=== PATIENT | male | born 1940 | race Caucasian/White ===

== ENCOUNTER → 2017-11-07 | Outpatient (CLI) | payer BC | END | disposition home or self-care (01) | LOC: C.LABSPEC 10:14 | PROVIDERS: ATTEND Urology | DX: R30.0 Dysuria (principal) ==

== ENCOUNTER 2019-01-03 08:53 | Inpatient (IN) ==
--- OUTSIDE RECORDS SUMMARY | 2019-01-03 08:58 | External Medical Summary | Continuity of Care Document ---
:1940 Author Name Sarah Santizo, Provider Address Unavailable Unavailable , Care Team Providers Name Role Phone Odin Garcia PA-C Unavailable [email or web address] Robbie Fitzpatrick M.D. Unavailable [email or web address] Unavailable [email or web address] Dennis Iglesias M.D. Unavailable [email or web address] Tiera GONZALEZ Unavailable Unavailable Unavailable Unavailable Unavailable Problems Aortic regurgitation (424.1) (I35.1) EKG, abnormal (794.31) (R94.31) Mitral regurgitation (424.0) (I34.0) Dementia with Lewy bodies (331.82) (G31.83) Hallucinations (780.1) (R44.3) Prostate cancer (185) (C61) Bone metastases (198.5) (C79.51) Sinus bradycardia (427.89) (R00.1) Urethral stricture (598.9) Essential thrombocythemia (238.71) (D47.3) Hyperlipidemia (272.4) (E78.5) Parkinson's disease (332.0) (G20) Orthostatic hypotension (458.0) (I95.1) Allergies and Adverse Reactions No Known Drug Allergies (Allergy) Medications Atorvastatin Calcium 20 MG Oral Tablet; TAKE 1 TABLET DAILY. Quantity: 90 Refills: 3 Donepezil HCl - 10 MG Oral Tablet; TAKE 1 TABLET DAILY DI RECTED. Refills: 0 Ativan 0.5 MG Oral Tablet; prn Refills: 0 Namenda 10 MG Oral Tablet; TAKE ONE TABLET BY MOUTH TWICE A DAY Refills: 0 Vitamin D3 TABS Refills: 0 traZODone HCl - 100 MG Oral Tablet; TAKE 1 TABLET AT BEDTIME . Quantity: 30 Refills: 2 Tylenol TABS; TAKE 1 TO 2 TABLETS EVERY 6 HOURS NEEDED. Refills: 0 Midodrine HCl - 5 MG Oral Tablet; TAKE 1 TABLET 3 TIME S DAILY. Sukhdev Fitzpatrick Start: 20-Oct-2018 Quantity: 270 Refills: 3 Midodrine HCl - 10 MG Oral Tablet; TAKE 1 TABLET BY [facility] 3 TIMES A DAY Sukhdev Fitzpatrick Start: 12-Oct-2018 Quantity: 270 Refills: 3 QUEtiapine Fumarate 50 MG Oral Tablet; TAKE 1 AM IN AM THEN 2 TABLETS PM Sukhdev Iglesias Quantity: 270 Refills: 0 Carbidopa-Levodopa 25-100 MG Oral Tablet ; TAKE 1/2 TABLET BY MOUTH THREE TIMES DAILY Sukhdev Iglesias Quantity: 135 Refills: 1 Bicalutamide 50 MG Oral Tablet; TAKE 1 TABLET DAILY AT DINNER. JUDY Inman Start: 13-Mar-2018 Quantity: 90 Refills: 3 Procedures History of brachytherapy Status: Complet ed History of excision melanoma Status: Com pleted History of Cystoscopy For Urethral Stricture Status: Completed Immunizations Immunizations not documented Family History Mother No pertinent family history (V49.89) (Z78.9) Status: Active Father No pertinent family history (V49.89) (Z78.9) Status: Active Social History - Smoking Status Never smoker Plan of Treatment Planned Encounters Appointment; Odin Garcia PA-C Start: 15-Feb-2019 11:00 Requ est Planned Observations Planned Goals not documented Results No Known Results Results not documented Encounters Appointment; Odin Garcia PA-C 02-Nov-2018 11:00 Encounter Diagnosis: Problem not documented Appointment; Hill Iglesias M.D. 18-Oct-2018 11:15 Encounter Diagnosis: Problem not documented Appointment; Zay Brown M.D. 16-Oct-2018 10:15 Encounter Diagnosis: Problem not documented Appointment; Odin Garcia PA-C 12-Oct-2018 11:00 Encounter Diagnosis: Problem not documented Appointment; Octavio Fitzpatrick M.D. 24-Aug-2018 13:00 Encounter Diagnosis: Problem not documented Appointment; Hill Iglesias M.D. 18-Jul-2018 10:30 Encounter Diagnosis: Problem not documented Appointment; Zay Brown M.D. 12-Jun-2018 11:10 Encounter Diagnosis: Problem not documented Appointment; Zay Brown M.D. 13-Mar-2018 10:25 Encounter Diagnosis: Problem not documented Appointment; Zay Brown M.D. 12-Dec-2017 11:20 Encounter Diagnosis: Problem not documented Appointment; Zay Brown M.D. 14-Nov-2017 9:15 Encounter Diagnosis: Problem not documented Appointment; Zay Brown M.D. 07-Nov-2017 13:30 Encounter Diagnosis: Problem not documented Appointment; Odin Garcia PA-C 15-Feb-2019 11:00 Encounter Diagnosis: Problem not documented
[2019-01-03] MEDS ORDERED: SODIUM CHLORIDE 0.9% 1000ML 1,000 ML IV SCH (09:30)
[2019-01-03 09:45] LABS: Basophils # (auto) 0.03 K/uL (0-0.2); Basophils % (auto) 0.5 %; Eosinophils # (auto) 0.23 K/uL (0-0.5); Eosinophils % (auto) 3.5 %; Hematocrit (blood only) 39.5 % (42-52); Hemoglobin 13.2 g/dL (14.0-18.0); Immature Granulocytes # (auto) 0.01 K/uL (0.00-0.02); Immature Granulocytes % (auto) 0.2 %; Lymphocytes % (auto) 27.8 %; Mean Corpuscular Hgb Conc 33.4 g/dL (32-36); Mean Corpuscular Volume 92.7 fL (80-100); Mean Platelet Volume 9.4 fL (7.4-10.4); Monocytes # (auto) 0.56 K/uL (0.11-0.59); Monocytes % (auto) 8.6 %; Neutrophils # (auto) 3.85 K/uL (1.4-6.5); Neutrophils % (auto) 59.4 %; Platelet Count 263 K/uL (130-400); RDW Standard Deviation 47.6 fL (36.4-46.3); Red Blood Count 4.26 M/uL (4.7-6.1); White Blood Count 6.48 K/uL (4.8-10.8)
--- NOTE | 2019-01-03 09:59 | XRay Report ---
XR chest 1V portable HISTORY: weakness COMPARISON: Chest 12/06/2016. FINDINGS: No pneumothorax. No pleural effusions. There are low lung volumes. The heart is normal in s ize. Bibasilar linear densities favor subsegmental atelectasis. Otherwise, the lungs are clear. IMPRESSION: No acute process. Electronically signed by: Kartik Robbins M.D. 01/03/2019 9:58 AM
[2019-01-03 10:05] LABS: Alanine Aminotransferase 20 U/L (12-78); Albumin Level 3.7 gm/dl (3.4-5.0); BUN Creatinine Ratio 17.3 (10-20); Blood Urea Nitrogen 27 mg/dl (7-18); Calcium 8.8 mg/dl (8.5-10.1); Carbon Dioxide 30 mmol/L (21-32); Chloride 105 mmol/L (98-107); Creatinine Clr Calc Pharmacy 41.9 ml/min; Est GFR (African American) 47.2; Est GFR (Non-African American) 40.7; Glucose 96 mg/dl (70-99); Sodium 139 mmol/L (136-145)
[2019-01-03 10:12] LABS: Appearance Urine Clear (Clear); Bilirubin Urine Negative (Negative); Blood Urine Negative (Negative); Color Urine Yellow; Glucose Urine UA Negative (Negative); Ketones Urine Negative (Negative); Leukocyte Esterase Urine Negative (Negative); Nitrite Urine Negative (Negative); Protein Urine Negative (Negative); Specific Gravity Urine 1.026 (1.000-1.030); Urobilinogen Urine Negative (Negative)
[2019-01-03 10:14] LABS: Alkaline Phosphatase 125 U/L (45-117); Bilirubin,Total 0.8 mg/dl (0.2-1); Globulin 3.7 gm/dl (2.5-4.0); Total Protein 7.4 gm/dl (6.4-8.2); Troponin I < 0.015 ng/ml (0-0.045)
[2019-01-03 10:34] LABS: T4 Free Thyroxine 0.98 ng/dl (0.8-1.6)
--- NOTE | 2019-01-03 10:36 | CT Scan Report ---
HEAD CT NONCONTRAST CT DOSE: 537.48 mGy.cm HISTORY: weakness, frequent falls TECHNIQUE: Multiaxial CT images of the head were performed without the use of intravenous contrast. A utomated exposure control was utilized for this study. A dose lowering technique was utilized adheri ng to the principles of ALARA. Comparison: None. Findings: The paranasal sinuses and mastoid air cells are clear. The calvarium and skull base are int act. There is no mass, hematoma, midline shift, acute infarct. White matter hypodensity is nonspecifi c but suggestive of microvascular ischemic change. The ventricles and sulci demonstrate mild age-rela shaan involutional changes. Bilateral basal ganglia calcifications. Impression: No acute intracranial abnormality. Atrophy and microvascular ischemic changes. Electronically signed by: Kartik Robbins M.D. 01/03/2019 10:34 AM
[2019-01-03] MEDS ORDERED: TRAZODONE HCL 50 MG TAB PO ONE (12:21)
[2019-01-03] MEDS ORDERED: QUETIAPINE FUMARATE 25 MG TABLET PO ONE (12:22)
--- NOTE | 2019-01-03 13:36 | History & Physical Report ---
Date of Service January 03, 2019 Assessment & Plan (1) Ambulatory dysfunction: This patient is an 78-year-old male with a history of Parkinson's disease, Lewy body dementia, orthostatic hypotension with frequent falls, HL, metastatic prostate cancer to the bones, AI, MR, and history of traumatic SDH, who presents to the ER after his reports she could barely get him to walk today. He had 1 of his usual falls 4 days ago in which he sustained a fracture of the right wrist and has been in a cast. His who is his primary family advocate has been giving him hydrocodone as needed for pain since that time as he has been having severe pain and swelling in the right hand. The also reports that about 10 days ago, she started giving him trazodone 25 mg in the morning and 25 mg at bedtime rather than the 50 mg at bedtime but is prescribed-she reports that she thought that is what was on the bottle as far as the instructions went. The reports when he got out of bed this morning, he was shuffling and leaning forward and she had to hold onto him to get him to keep from falling and he was a lot weaker than usual. No focal weakness or facial droop. The reports that she feels like she cannot handle him at home and is considering placement in a rehab. His creatinine is mildly elevated at 1.58 and she is unsure if this is his baseline or not. He was also positive on orthostatic blood pressures in the ER. He was given IV fluids. -Ambulatory dysfunction is likely a combination of his Parkinson's disease, his orthostasis, and worsened recently with the addition of hydrocodone and adding a daytime dose of trazodone. He is on multiple drugs that can cause orthostasis as below. CT of the head is negative for acute changes. There is no evidence of infection. He does have a possible mild renal insufficiency if it is not his baseline. -will admit for observation overnight, hold all hydrocodone and daytime trazodone dose although he did get a dose here in the ER this morning and see if his weakness improves back to baseline -PT/OT consults placed - will consider rehab placement (2) Orthostatic hypotension: As above, on multiple medications that can cause orthostasis including Sinemet, Seroquel, trazodone. Also on hydrocodone as above which could contribute to ambulatory dysfunction. Parkinson's disease itself could also be causing autonomic dysfunction. -Creatinine is mildly elevated and unclear if this is his baseline or not- question if he could also be mildly dehydrated? -Continue midodrine 15 mg p.o. 3 times daily -Orthostatic vital signs every shift -Continue normal saline at 100 mL's per hour -Follow BMP in the morning -Decrease trazodone dose back to the 50 mg once at bedtime -Unfortunately, it seems that without the Seroquel, he has significant agitation in the setting of his Lewy body dementia -Consider neurology consultation with his neurologist, Dr. Iglesias, if consideration needs to be made for adjusting any of these medications (3) Prostate cancer: With mets to the bones -Followed by Dr. Brown of urology -Recently started on bicalutamide and had significant side effects in the past with Lupron (4) Parkinsons disease: As above -Continue Sinemet (5) Dementia: Will be body dementia as above -Continue Seroquel, trazodone nightly Aricept, Namenda -Is also on lorazepam twice daily which could make his mental status worse, however would not stop this at this time as this could worsen his symptoms if he has withdrawal (6) Hyperlipidemia: Continue statin (7) Frequent falls: Likely secondary to orthostasis and other drugs such as lorazepam and hydrocodone -Holding hydrocodone, reducing trazodone dose to the evenings only as above -Follow PT/OT (8) Elevated serum creatinine: Creatinine here is 1.58-unclear what baseline is and is not sure. He apparently is making urine and not having evidence of retention. Electrolytes are otherwise within normal limits. -Continue IV fluids and check BMP in the morning -Renally dose medications and avoid nephrotoxins (9) Wrist fracture, right: Fractured his wrist after a fall on 12/30, was supposed to be having surgery this Tuesday at an outside hospital but was seen in the office apparently by Dr. Ackerman in [place] earlier this week Cast is causing him severe pain as per the and she also reports he has blisters underneath the cast. His hand is swollen but it is neurovascularly intact at this time -Consult orthopedics for further management-appreciate consultation -Continue Tylenol only as needed for pain (10) Elevated TSH: TSH mildly elevated at 5.49 -Would recommend repeat TFTs in 4 weeks as an outpatient (11) DVT prophylaxis: SARITHA bloom, consider adding on heparin if stay will be longer than 24 hours Disposition-admit to medical floor with telemetry reports that patient is a DNR/DNI and she is his primary decision maker given his significant dementia History of Present Illness Chief Complaint: Weakness, falls Primary Care Provider: Gabo Flanagan This patient is an 78-year-old male with a history of Parkinson's disease, Lewy body dementia, orthostatic hypotension with frequent falls, HL, metastatic prostate cancer to the bones, AI, MR, and history of traumatic SDH, who presents to the ER after his reports she could barely get him to walk today. He had 1 of his usual falls 4 days ago in which he sustained a fracture of the right wrist and has been in a cast. His who is his primary family advocate has been giving him hydrocodone as needed for pain since that time as he has been having severe pain and swelling in the right hand. The also reports that about 10 days ago, she started giving him trazodone 25 mg in the morning and 25 mg at bedtime rather than the 50 mg at bedtime but is prescribed-she reports that she thought that is what was on the bottle as far as the instructions went. The reports when he got out of bed this morning, he was shuffling and leaning forward and she had to hold onto him to get him to keep from falling and he was a lot weaker than usual. No focal weakness or facial droop. The patient is un able to tell me anything. Apparently he was getting agitated in the ER and they gave him his morning dose of trazodone and Seroquel and now he is awake and tells me his name, and is cooperative, but does not give me any history. The reports that she feels like she cannot handle him at home and is considering placement in a rehab. His creatinine is mildly elevated at 1.58 and she is unsure if this is his baseline or not. He was also positive on orthostatic blood pressures in the ER. He was given IV fluids. Allergies Allergy/AdvReac Type Severity Reaction Status Date / Time No Known Allergies Allergy Unverified 01/03/19 10:19 Home Medications Home Medications Medication Instructions Recorded Confirmed Type atorvastatin 20 mg PO HS 01/03/19 01/03/19 History bicalutamide 50 mg PO QPM 01/03/19 01/03/19 History carbidopa-levodopa 0.5 tab PO TID 01/03/19 01/03/19 History cholecalciferol (vitamin D3) 2,000 unit PO QAM 01/03/19 01/03/19 History [Vitamin D3] diphenhydramine-acetaminophen 2 tab PO HS PRN 01/03/19 01/03/19 History [Tylenol PM Extra Strength] donepezil 10 mg PO HS 01/03/19 01/03/19 History hydrocodone-acetaminophen 1 - 2 tab PO Q4H PRN 01/03/19 01/03/19 History lorazepam 0.5 mg PO DIRECTED PRN 01/03/19 01/03/19 History memantine 10 mg PO BID 01/03/19 01/03/19 History midodrine 15 mg PO TID 01/03/19 01/03/19 History polyethylene glycol 3350 [Miralax] 17 g PO DAILY 01/03/19 01/03/19 History quetiapine 50 mg PO DIRECTED 01/03/19 01/03/19 History trazodone 100 mg PO HS 01/03/19 01/03/19 History Past Med/Surg History Medical History Prostate cancer (Acute) Metastatic to the bones Parkinsons disease (Chronic) Dementia (Chronic) Lewy body Ambulatory dysfunction Aortic insufficiency Frequent falls History of melanoma History of traumatic subdural hematoma History of urethral stricture Hyperlipidemia Mitral regurgitation Orthostatic hypotension Surgical History History of melanoma excision Family History Other Family history non-contributory Social History Preferred Language: Indian Communication Ability: Effective Chairlift Operator Required: No Beliefs That Will Affect Care: None marital status: Current Living Situation: Spouse current occupational status: retired Other Information That Helps Us Care for You: No Feels Safe at Home: Yes Safety Concerns: Feels Safe At This Time Smoking Status: Former smoker Do You Dip or Chew Tobacco: No Second Hand Exposure: No Tobacco Cessation Education Requested by Patient: No Hx Alcohol Use: No Hx Substance Use: No Review of Systems Review of Systems: Unobtainable due to cognitive status Physical Exam Constitutional: WD/WN, vitals as above Eyes: PERRL (Pupils pinpoint but reactive, equal); no eyelid abnormality and no scleral abnormality ENMT: external ear and nose normal, oropharynx normal Neck: trachea midline, no thyromegaly Respiratory: normal respiratory effort, lungs clear to auscultation Cardiovascular: RRR, no murmur, no edema Gastrointestinal (Abdomen): normal bowel sounds, soft, nontender, no hepatosplenomegaly Musculoskeletal: Extremities: + extremities abnormal to inspection (Right forearm and wrist in cast, right hand significantly swollen, sensation intact to light touch, good cap refill, able to wiggle fingers and thumb), no cyanosis and no clubbing Skin: no rashes, warm and dry Neurologic: moves all extremities and awake; no focal motor deficits Psychiatric: Orientation: alert, oriented to person and cooperative; + not oriented to place and + not oriented to time Motor Behavior: n tremor Results & Data Vital Signs (Past 12 Hours) Vital Signs Temp Pulse Pulse Resp BP BP Pulse Ox 01/03/19 12:24 79 22 161/76 H 93 01/03/19 10:09 59 L 18 158/65 H 92 01/03/19 09:44 92 01/03/19 09:00 36.6 C 72 18 147/65 H 96 Laboratory Results 01/03/19 01/03/19 01/03/19 Range/Units 10:49 10:49 10:03 WBC (4.8-10.8) K/uL RBC (4.7-6.1) M/uL Hgb (14.0-18.0) g/dL Hct (42-52) % MCV (80-100) fL MCH (25-34) pg MCHC (32-36) g/dL RDW Std Deviation (36.4-46.3) fL RDW Coeff of Quinn (11.5-14.5) % Plt Count (130-400) K/uL MPV (7.4-10.4) fL Immature Gran % (Auto) % Neut % (Auto) % Lymph % (Auto) % [place] % (Auto) % Eos % (Auto) % Baso % (Auto) % Immature Gran # (Auto) (0.00-0.02) K/uL Neut # (Auto) (1.4-6.5) K/uL Lymph # (Auto) (1.2-3.4) K/uL [place] # (Auto) (0.11-0.59) K/uL Eos # (Auto) (0-0.5) K/uL Baso # (Auto) (0-0.2) K/uL PT 10.1 (9.0-12.0) Seconds INR 1.0 (0.9-1.1) APTT 28.7 (21.0-31.0) Seconds PTT Ratio 1.1 Sodium (136-145) mmol/L Potassium 4.0 (3.5-5.1) mmol/L Chloride (98-107) mmol/L Carbon Dioxide (21-32) mmol/L Anion Gap (3-11) BUN (7-18) mg/dl Creatinine (0.6-1.4) mg/dl Est Cr Clr Drug Dosing ml/min Est GFR ( Amer) Est GFR (Non-Af Amer) BUN/Creatinine Ratio (10-20) Glucose (70-99) mg/dl Calcium (8.5-10.1) mg/dl Total Bilirubin (0.2-1) mg/dl AST 17 (15-37) U/L ALT (12-78) U/L Alkaline Phosphatase (45-117) U/L Troponin I (0-0.045) ng/ml Total Protein (6.4-8.2) gm/dl Albumin (3.4-5.0) gm/dl Globulin (2.5-4.0) gm/dl Albumin/Globulin Ratio (0.9-2) TSH (0.300-4.500) uIu/ml Free T4 (0.8-1.6) ng/dl Urine Color Yellow Urine Appearance Clear (Clear) Urine pH 5.0 (4.5-7.5) Ur Specific [place] 1.026 (1.000-1.030) Urine Protein Negative (Negative) Urine Glucose (UA) Negative (Negative) Urine Ketones Negative (Negative) Urine Blood Negative (Negative) Urine Nitrite Negative (Negative) Urine Bilirubin Negative (Negative) Urine Urobilinogen Negative (Negative) Ur Leukocyte Esterase Negative (Negative) 01/03/19 01/03/19 Range/Units 09:34 09:34 WBC 6.48 (4.8-10.8) K/uL RBC 4.26 L (4.7-6.1) M/uL Hgb 13.2 L (14.0-18.0) g/dL Hct 39.5 L (42-52) % MCV 92.7 (80-100) fL MCH 31.0 (25-34) pg MCHC 33.4 (32-36) g/dL RDW Std Deviation 47.6 H (36.4-46.3) fL RDW Coeff of Quinn 14.0 (11.5-14.5) % Plt Count 263 (130-400) K/uL MPV 9.4 (7.4-10.4) fL Immature Gran % (Auto) 0.2 % Neut % (Auto) 59.4 % Lymph % (Auto) 27.8 % [place] % (Auto) 8.6 % Eos % (Auto) 3.5 % Baso % (Auto) 0.5 % Immature Gran # (Auto) 0.01 (0.00-0.02) K/uL Neut # (Auto) 3.85 (1.4-6.5) K/uL Lymph # (Auto) 1.80 (1.2-3.4) K/uL [place] # (Auto) 0.56 (0.11-0.59) K/uL Eos # (Auto) 0.23 (0-0.5) K/uL Baso # (Auto) 0.03 (0-0.2) K/uL PT (9.0-12.0) Seconds INR (0.9-1.1) APTT (21.0-31.0) Seconds PTT Ratio Sodium 139 (136-145) mmol/L Potassium (3.5-5.1) mmol/L Chloride 105 (98-107) mmol/L Carbon Dioxide 30 (21-32) mmol/L Anion Gap 4.0 (3-11) BUN 27 H (7-18) mg/dl Creatinine 1.58 H (0.6-1.4) mg/dl Est Cr Clr Drug Dosing 41.9 ml/min Est GFR ( Amer) 47.2 Est GFR (Non-Af Amer) 40.7 BUN/Creatinine Ratio 17.3 (10-20) Glucose 96 (70-99) mg/dl Calcium 8.8 (8.5-10.1) mg/dl Total Bilirubin 0.8 (0.2-1) mg/dl AST (15-37) U/L ALT 20 (12-78) U/L Alkaline Phosphatase 125 H (45-117) U/L Troponin I < 0.015 (0-0.045) ng/ml Total Protein 7.4 (6.4-8.2) gm/dl Albumin 3.7 (3.4-5.0) gm/dl Globulin 3.7 (2.5-4.0) gm/dl Albumin/Globulin Ratio 1.0 (0.9-2) TSH 5.490 H (0.300-4.500) uIu/ml Free T4 0.98 (0.8-1.6) ng/dl Urine Color Urine Appearance (Clear) Urine pH (4.5-7.5) Ur Specific [place] (1.000-1.030) Urine Protein (Negative) Urine Glucose (UA) (Negative) Urine Ketones (Negative) Urine Blood (Negative) Urine Nitrite (Negative) Urine Bilirubin (Negative) Urine Urobilinogen (Negative) Ur Leukocyte Esterase (Negative) Diagnostic Findings HEAD CT NONCONTRAST CT DOSE: 537.48 mGy.cm HISTORY: weakness, frequent falls TECHNIQUE: Multiaxial CT images of the head were performed without the use of intravenous contrast. Automated exposure control was utilized for this study. A dose lowering technique was utilized adhering to the principles of ALARA. Comparison: None. Findings: The paranasal sinuses and mastoid air cells are clear. The calvarium and skull base are intact. There is no mass, hematoma, midline shift, acute infarct. White matter hypodensity is nonspecific but suggestive of microvascular ischemic change. The ventricles and sulci demonstrate mild age-related involutional changes. Bilateral basal ganglia calcifications. Impression: No acute intracranial abnormality. Atrophy and microvascular ischemic changes. XR chest 1V portable HISTORY: weakness COMPARISON: Chest 12/06/2016. FINDINGS: No pneumothorax. No pleural effusions. There are low lung volumes. The heart is normal in size. Bibasilar linear densities favor subsegmental atelectasis. Otherwise, the lungs are clear. IMPRESSION: No acute process. ECG Rate (beats per minute): 70 Rhythm: normal sinus Additional Comments: No ischemic changes Code Status & VTE Plan Code Status DNR/DNI VTE Prophylaxis Plan VTE Prophylaxis will be ordered: Yes
[2019-01-03 16:20] LABS: Partial Thromboplastin Ratio 1.1; Partial Thromboplastin Time 28.7 Seconds (21.0-31.0); Prothrombin Time 10.1 Seconds (9.0-12.0)
[2019-01-03] MEDS: BICALUTAMIDE 50 MG TAB PO SCH (16:20)
[2019-01-03] MEDS: ACETAMINOPHEN 325 MG TAB PO PRN (16:20)
[2019-01-03] MEDS: SODIUM CHLORIDE 0.9% 1000ML 1,000 ML IV SCH (16:21)
[2019-01-03] MEDS: CARBIDOPA/LEVODOPA 25/100MG TAB PO SCH ×2 (16:21→21:03)
[2019-01-03] MEDS: MIDODRINE HCL 10 MG TAB PO SCH ×2 (17:08→17:37)
[2019-01-03] MEDS: LORazepam 0.5 MG TAB PO PRN (17:33)
[2019-01-03] MEDS: TRAZODONE HCL 50 MG TAB PO SCH (21:03)
[2019-01-03] MEDS: QUETIAPINE FUMARATE 25 MG TABLET PO SCH (21:03)
[2019-01-03] MEDS: ENOXAPARIN INJ 40 MG/0.4 ML SYR SQ SCH (21:04)
[2019-01-03] MEDS: ATORVASTATIN 20 MG TAB PO SCH (21:04)
[2019-01-03] MEDS: MEMANTINE HCL 10 MG TAB PO SCH (21:04)
[2019-01-03] MEDS: DONEPEZIL HCL 10 MG TAB PO SCH (21:04)
--- NOTE | 2019-01-03 22:22 | Consultation Report ---
DATE OF CONSULTATION: 01/03/2019 Special attention to right distal radius fracture. HISTORY OF PRESENT ILLNESS: This is an 78-year-old gentleman who is known to me from office visit on Tuesday. He sustained a fall and resultant distal radius fracture. I saw him in the office and we discussed surgical treatment and the tentative plan was for surgical treatment this Tuesday for ORIF of right distal radius fracture by one of my partners in a hospital setting. The patient is admitted to the hospitalist service with recent falls and difficulty from the patient's caregiver taking care of her. Further details are not available to me as the patient does exhibit significant baseline dementia and there was no family available for further discussion. PAST MEDICAL HISTORY: History of Lewy body dementia, prostate cancer, Parkinson's disease, bradycardia and multiple falls. MEDICATIONS: Carbidopa/levodopa, bicalutamide, atorvastatin, vitamin D, donepezil, hydrocodone, lorazepam, memantine, midodrine, quetiapine and trazodone. PHYSICAL EXAMINATION: EXTREMITIES: Right hand exam does show a well-fitted short arm cast. He has moderate swelling in the digits. The patient does appear to be comfortable. He is verbal, but is not oriented to time or place. ASSESSMENT: 1. Right distal radius fracture, 2-part extraarticular. 2. History of Lewy body dementia. 3. Parkinson's disease. 4. Prostate cancer. 5. Bradycardia with multiple falls. PLAN: We will further discuss with the hospitalist service if he is a suitable candidate for surgical treatment. The patient does have some underlying cardiac comorbidities including bradycardia. If he is deemed an acceptable risk for surgical treatment we can consider proceeding with: 1. ORIF right intra-articular 2-part distal radius fracture with volar plate. We will continue to follow and will discuss further with the hospitalist service if the patient is medically cleared for surgical treatment. BEATRICE
[2019-01-04] MEDS: SODIUM CHLORIDE 0.9% 1000ML 1,000 ML IV SCH ×2 (01:43→11:57)
[2019-01-04 06:35] LABS: BUN Creatinine Ratio 17.5 (10-20); Calcium 8.5 mg/dl (8.5-10.1); Creatinine Clr Calc Pharmacy 55.8 ml/min; Est GFR (African American) 67.1; Est GFR (Non-African American) 57.9; Potassium 3.8 mmol/L (3.5-5.1)
[2019-01-04] MEDS: MIDODRINE HCL 10 MG TAB PO SCH ×2 (06:39→12:32)
[2019-01-04] MEDS: MEMANTINE HCL 10 MG TAB PO SCH ×2 (07:38→20:54)
[2019-01-04] MEDS: QUETIAPINE FUMARATE 25 MG TABLET PO SCH ×2 (07:39→20:53)
[2019-01-04] MEDS: CARBIDOPA/LEVODOPA 25/100MG TAB PO SCH ×3 (07:39→20:54)
[2019-01-04] MEDS: CHOLECALCIFEROL 1,000 UNITS TAB PO SCH (07:40)
[2019-01-04] MEDS: POLYETHYLENE (MIRALAX) 17 GM PACK PO SCH (07:49)
[2019-01-04] MEDS: ACETAMINOPHEN 325 MG TAB PO PRN ×2 (10:18→15:42)
--- NOTE | 2019-01-04 14:58 | Hospitalist Progress Note ---
Date of Service January 04, 2019 Assessment & Plan (1) Ambulatory dysfunction: Due to Parkinson's disease, orthostatic hypotension with frequent falls, debility, and medications. - Minimize sedating meds as able - PT/OT - Likely rehab placement (2) Wrist fracture, right: Fractured his wrist after a fall on 12/30. He was supposed to be having surgery this Tuesday at an outside hospital but was seen in the office apparently by Dr. Ackerman in [place] earlier this week. His cast is causing him severe pain as per the and she also reports he has blisters underneath the cast. - His hand is swollen but it is neurovascularly intact - Continue Tylenol only as needed for pain - Consulted orthopedics - Will proceed with surgery if patient's desires (3) Orthostatic hypotension: As above, on multiple medications that can cause orthostasis including Sinemet, Seroquel, trazodone. Also on hydrocodone as above which could contribute to ambulatory dysfunction. Parkinson's disease itself could also be causing autonomic dysfunction. - Continue midodrine - Decreased trazodone dose back to the 50 mg once at bedtime - Unfortunately, it seems that without the Seroquel, he has significant agitation in the setting of his Lewy body dementia (4) Prostate cancer: With mets to the bones. - Followed by Dr. Brown of urology - Recently started on bicalutamide and had significant side effects in the past with Lupron (5) Parkinsons disease: As above - Continue Sinemet (6) Dementia: With Lewy body dementia as above. - Continue Seroquel, trazodone nightly - Continue Aricept, Namenda - Is on lorazepam BID which could make his mental status worse - Switched to PRN to avoid withdrawal (7) Hyperlipidemia: - Continue statin (8) Elevated TSH: TSH mildly elevated at 5.49. - Would recommend repeat TFTs in 4 weeks as an outpatient (9) DVT prophylaxis: Lovenox reports that patient is a DNR/DNI, and she is his primary decision maker given his significant dementia. Subjective Reports he is not in any pain. When asked where he is, he starts to give directions to an unknown location. Review of Systems Review of Systems: Unobtainable due to mental health condition Physical Exam Constitutional: WD/WN, vitals as above Eyes: PERRL (Pupils pinpoint but reactive, equal); no eyelid abnormality and no scleral abnormality ENMT: external ear and nose normal, oropharynx normal Neck: trachea midline, no thyromegaly Respiratory: normal respiratory effort, lungs clear to auscultation Cardiovascular: RRR, no murmur, no edema Gastrointestinal (Abdomen): normal bowel sounds, soft, nontender, no hepatosplenomegaly Musculoskeletal: Extremities: + extremities abnormal to inspection (Right forearm and wrist in cast, right hand significantly swollen, sensation intact to light touch, good cap refill, able to wiggle fingers and thumb), no cyanosis and no clubbing Skin: no rashes, warm and dry Neurologic: moves all extremities and awake; no focal motor deficits Psychiatric: Orientation: alert, oriented to person and cooperative; + not oriented to place and + not oriented to time Motor Behavior: n tremor Results & Data Vital Signs (Past 12 Hours) Vital Signs Temp Pulse Pulse Pulse Resp BP Pulse Ox 01/04/19 11:26 93 01/04/19 11:20 36.4 C L 67 20 158/74 H 93 01/04/19 08:00 59 L 01/04/19 07:44 36.7 C 61 20 180/77 H 92 01/04/19 03:40 36.6 C 68 18 178/73 H 93
[2019-01-04] MEDS: BICALUTAMIDE 50 MG TAB PO SCH (15:42)
[2019-01-04] MEDS: HydrALAZINE 10 MG TAB PO PRN (18:30)
[2019-01-04] MEDS: TRAZODONE HCL 50 MG TAB PO SCH (20:54)
[2019-01-04] MEDS: ATORVASTATIN 20 MG TAB PO SCH (20:54)
[2019-01-04] MEDS: DONEPEZIL HCL 10 MG TAB PO SCH (20:54)
[2019-01-04] MEDS: ENOXAPARIN INJ 40 MG/0.4 ML SYR SQ SCH (20:55)
[2019-01-05] MEDS: MEMANTINE HCL 10 MG TAB PO SCH ×2 (08:48→20:01)
[2019-01-05] MEDS: QUETIAPINE FUMARATE 25 MG TABLET PO SCH ×2 (08:48→20:02)
[2019-01-05] MEDS: CHOLECALCIFEROL 1,000 UNITS TAB PO SCH (08:48)
[2019-01-05] MEDS: CARBIDOPA/LEVODOPA 25/100MG TAB PO SCH ×3 (08:49→20:01)
[2019-01-05] MEDS: POLYETHYLENE (MIRALAX) 17 GM PACK PO SCH (08:50)
--- NOTE | 2019-01-05 13:04 | Anesthesiology Consultation ---
Date of Service January 05, 2019 Assessment & Plan Chart Review Chart Review: Acceptable Risk for Surgery and Patient NOT seen in Pre Admission Testing Consults Requested none ASA [id number] Proposed Anesthesia Anesthesia Type: General Regional Regional Laterality: Right Site: Supraclavicular Risk / Benefits Reviewed With: PT / POA / Parent / Guardian, Accepts Plan and Informed Consent Obtained Additional Comments: Pt with dementia. Pts , Alberta Houston, is his POA. Di scussed r/b of GA and PNB with pts on the phone. Discussed pt increased risk due to his comorbidities. All questions and concerns were answered. Also discussed with pts that DNR/DNI order will be suspended during the intraop period and can be resumed once patient is done with surgery. Pts understand and accepting risks. Consent was given over the phone and witnessed by Jessica Kent RN. History Surgery Operation Date: 01/06/19 07:30 Proposed Procedures p Right Distal Radius Fracture Open Reduction Internal Fixation - Aashish Ackerman MD Height/Weight Height: 1.78 m Weight: 88.1 kg Allergies Allergy/AdvReac Type Severity Reaction Status Date / Time No Known Allergies Allergy Unverified 01/03/19 10:19 Medications Home Medications Medication Instructions Recorded Confirmed Last Taken atorvastatin 20 mg PO HS 01/03/19 01/03/19 Unknown bicalutamide 50 mg PO QPM 01/03/19 01/03/19 Unknown carbidopa-levodopa 0.5 tab PO TID 01/03/19 01/03/19 Unknown cholecalciferol (vitamin D3) 2,000 unit PO QAM 01/03/19 01/03/19 Unknown [Vitamin D3] diphenhydramine-acetaminophen 2 tab PO HS PRN 01/03/19 01/03/19 Unknown [Tylenol PM Extra Strength] donepezil 10 mg PO HS 01/03/19 01/03/19 Unknown hydrocodone-acetaminophen 1 - 2 tab PO Q4H PRN 01/03/19 01/03/19 Unknown lorazepam 0.5 mg PO DIRECTED PRN 01/03/19 01/03/19 Unknown memantine 10 mg PO BID 01/03/19 01/03/19 Unknown midodrine 15 mg PO TID 01/03/19 01/03/19 Unknown polyethylene glycol 3350 [Miralax] 17 g PO DAILY 01/03/19 01/03/19 Unknown quetiapine 50 mg PO DIRECTED 01/03/19 01/03/19 Unknown trazodone 100 mg PO HS 01/03/19 01/03/19 Unknown Active Medications Generic Name Dose Route Start Last Admin Trade Name Freq PRN Reason Stop Dose Admin Acetaminophen 650 mg 01/03/19 15:12 01/04/19 15:42 Tylenol PO 02/02/19 15:11 650 mg Q4H PRN Administration Pain or Fever Atorvastatin Calcium 20 mg 01/03/19 21:00 01/05/19 20:01 Lipitor PO 02/02/19 20:59 20 mg HS RAJAT Administration Bicalutamide 50 mg 01/03/19 16:30 01/05/19 17:47 Casodex PO 02/02/19 16:29 50 mg QDD RAJAT Administration Carbidopa/Levodopa 0.5 tab 01/03/19 16:00 01/05/19 20:01 Sinemet 25/100 Mg PO 02/02/19 15:59 0.5 tab TID@0900,1200,2100 RAJAT Administration Donepezil HCl 10 mg 01/03/19 21:00 01/05/19 20:01 Aricept PO 02/02/19 20:59 10 mg HS RAJAT Administration Enoxaparin Sodium 40 mg 01/03/19 21:00 01/04/19 20:55 Lovenox SQ 02/02/19 20:59 40 mg Q24H RAJAT Administration Hydralazine HCl 5 mg 01/04/19 17:44 01/06/19 00:03 Apresoline PO 02/03/19 17:44 5 mg Q4H PRN Administration SBP > 180 or DBP > 110 Lorazepam 0.5 mg 01/03/19 15:12 01/03/19 17:33 Ativan PO 02/02/19 15:11 0.5 mg DAILY PRN Administration Panic Attack(S) Memantine 10 mg 01/03/19 21:00 01/05/19 20:01 Namenda PO 02/02/19 20:59 10 mg BID RAJAT Administration Polyethylene Glycol 17 gm 01/04/19 09:00 01/05/19 08:50 Miralax Powder Packet PO 02/03/19 08:59 Not Given QAM RAJAT Quetiapine Fumarate 50 mg 01/03/19 21:00 01/05/19 20:02 Seroquel PO 02/02/19 20:59 50 mg BID RAJAT Administration Trazodone HCl 50 mg 01/03/19 21:00 01/05/19 20:02 Desyrel PO 02/02/19 20:59 50 mg HS RAJAT Administration Vitamin D 2,000 units 01/04/19 09:00 01/05/19 08:48 Vitamin D3 PO 02/03/19 08:59 2,000 units QAM RAJAT Administration Past Medical History Medical History Prostate cancer (Acute) Metastatic to the bones Parkinsons disease (Chronic) Dementia (Chronic) Lewy body Ambulatory dysfunction Aortic insufficiency History of melanoma History of traumatic subdural hematoma 12 years ago History of urethral stricture Hyperlipidemia Mitral regurgitation Orthostatic hypotension Exercise / Class Metabolic Activity III < 4 Walking/Shop/Light housework Past Family History Family History Other Family history non-contributory Past Surgical History Surgical History H/O bilateral cataract extraction H/O colonoscopy History of melanoma excision Past Anesthesia History No Hx of Anesthesia Complications and No Family Hx of Anesthesia Complications History of PONV No Hx of PONV and No Hx of Motion Sickness Social History Smoking Status: Former smoker (Quit 30 years ago) Do You Dip or Chew Tobacco: No Hx Alcohol Use: No Hx Substance Use: No Review of Systems Respiratory: no dyspnea Cardiovascular: no chest pain and no dyspnea on exertion Gastrointestinal: no heartburn, no nausea and no vomiting Physical Exam Vital Signs Last Vital Signs Temp 36.6 C 01/06/19 06:09 Pulse 55 L 01/06/19 06:09 Resp 16 01/06/19 06:09 BP 173/83 H 01/06/19 06:09 Pulse Ox 93 01/06/19 06:09 ENMT Mouth: + dentures (Full upper and lower); no TMJ abnormality and no TMJ clicking Thyromental Distance: > or= 3.5 Finger Breadths Mallampati Class: II Neck normal visual inspection; neck extension not limited Respiratory Auscultation: lungs clear to auscultation bilaterally Cardiovascular Rate/Rhythm: regular rate and regular rhythm Psychiatric Orientation: alert and oriented x 3 Testing Laboratory Results 01/03/19 09:34 01/04/19 05:19 Electrocardiogram Date: 01/03/19 Findings: + NSR @ (70 bpm) Sinus rhythm with Premature atrial complexes Otherwise normal ECG No previous ECGs available Confirmed by Nathan Xiong ([id number]) on 01/04/2019 10:36:35 PM Chest X-Ray Date: 01/03/19 Findings: + NAD Echocardiogram Date: 03/31/18 EF: 55-60% LV Function: normal Moderate AR Mild to moderate MR
--- NOTE | 2019-01-05 14:30 | Emergency Department Note ---
Entered by Jesusita Alan acting as a scribe for Hill Vieira MD History of Present Illness General Chief complaint: Confusion Stated complaint: confusion, unable to void, hx dementia, parkinsons Time Seen by Provider: 01/03/19 09:09 Source: patient and family () History of Present Illness Onset (ago): hour(s) (this morning) Location: head Pain Consistency: + other (episode) Maximum Pain Intensity: 3 Quality: + other (weakness) Associated symptoms: + confusion and + other (inability to stand, no urination) The patient is a 78 year old male that is presenting to the Emergency Room with complaints of an episode of weakness that started this morning. The patients reports that the patient has dementia and Parkinsons at baseline and so she provided the history of the patients illness. His reports that the pa tient has not urinated this morning and has been unable to stand on his own. His denies any black or bloody stools. His states that the patient has episodes where he falls regularly. His notes that his provider states that these episodes are secondary to a drop in blood pressure. His reports that he generally falls backwards during these episodes. His states that the patient fell backwards down the stairs 3 days ago and broke his wrist. His notes that the patient was seen at urgent care in [place]. His reports that he had a complete bone scan completed 2 days. His states that the patient has a history of prostate cancer and had 2 seeds implanted. The patients notes that the patient received two Lupon shots in the past but notes that his mental condition seemed to deteriorate afterwards. His notes that the patient was prescribed oxycodone for his wrist pain but states that he has not taken any today. The patient denies any pain other than in his wrist. His reports that the patient lives at home currently but notes that she is seeking another living arrangement for the patient. Home Medications Home Medications Medication Instructions Recorded Confirmed Type atorvastatin 20 mg PO HS 01/03/19 01/03/19 History bicalutamide 50 mg PO QPM 01/03/19 01/03/19 History carbidopa-levodopa 0.5 tab PO TID 01/03/19 01/03/19 History cholecalciferol (vitamin D3) 2,000 unit PO QAM 01/03/19 01/03/19 History [Vitamin D3] diphenhydramine-acetaminophen 2 tab PO HS PRN 01/03/19 01/03/19 History [Tylenol PM Extra Strength] donepezil 10 mg PO HS 01/03/19 01/03/19 History hydrocodone-acetaminophen 1 - 2 tab PO Q4H PRN 01/03/19 01/03/19 History lorazepam 0.5 mg PO DIRECTED PRN 01/03/19 01/03/19 History memantine 10 mg PO BID 01/03/19 01/03/19 History midodrine 15 mg PO TID 01/03/19 01/03/19 History polyethylene glycol 3350 [Miralax] 17 g PO DAILY 01/03/19 01/03/19 History quetiapine 50 mg PO DIRECTED 01/03/19 01/03/19 History trazodone 100 mg PO HS 01/03/19 01/03/19 History Allergies Allergy/AdvReac Type Severity Reaction Status Date / Time No Known Allergies Allergy Unverified 01/03/19 10:19 Past Med/Surg History Medical History Prostate cancer (Acute) Metastatic to the bones Parkinsons disease (Chronic) Dementia (Chronic) Lewy body Ambulatory dysfunction Aortic insufficiency History of melanoma History of traumatic subdural hematoma History of urethral stricture Hyperlipidemia Mitral regurgitation Orthostatic hypotension Surgical History History of melanoma excision Family History Other Family history non-contributory Social History Preferred Language: Turkish Communication Ability: Impaired Automobile Drivers Required: No Beliefs That Will Affect Care: None marital status: Current Living Situation: Spouse current occupational status: retired Other Information That Helps Us Care for You: No Feels Safe at Home: Yes Safety Concerns: Feels Safe At This Time Smoking Status: Former smoker Do You Dip or Chew Tobacco: No Second Hand Exposure: No Tobacco Cessation Education Requested by Patient: No Hx Alcohol Use: No Hx Substance Use: No Review of Systems See HPI for pertinent positives & negatives. and A total of 10 systems reviewed and were otherwise negative Physical Exam Vital Signs Vital Signs - 24 hr 01/03/19 09:00 01/03/19 09:44 01/03/19 10:09 Temperature 97.9 F Temperature Source Oral Sepsis Recent Fever Within 48 Hours No Sepsis New/Unexplained Change in Mental Status No Sepsis Action Taken by Nursing No Action Required Pulse Rate - Lying 60 Pulse Rate - Sitting 69 Pulse Rate 72 Pulse Rate [Apical] 59 L Pulse Rhythm [Apical] Respiratory Rate 18 18 Respiratory Depth Normal Blood Pressure - Lying 143/66 H Blood Pressure - Sitting 118/59 L Blood Pressure 147/65 H Blood Pressure [Left Arm] 158/65 H Blood Pressure Mean 92 Blood Pressure Mean [Left Arm] 96 Pulse Oximetry 96 92 92 Oxygen Delivery Method Room Air Room Air 01/03/19 12:24 01/03/19 14:52 01/03/19 14:54 Temperature Temperature Source Sepsis Recent Fever Within 48 Hours Sepsis New/Unexplained Change in Mental Status Sepsis Action Taken by Nursing Pulse Rate - Lying Pulse Rate - Sitting Pulse Rate Pulse Rate [Apical] 79 69 Pulse Rhythm [Apical] Regular Respiratory Rate 22 19 Respiratory Depth Blood Pressure - Lying Blood Pressure - Sitting Blood Pressure Blood Pressure [Left Arm] 161/76 H 139/59 L Blood Pressure Mean Blood Pressure Mean [Left Arm] 104 85 Pulse Oximetry 93 94 Oxygen Delivery Method Room Air Room Air General: Chronically-ill appearing older male in no acute distress, answers some questions appropriately but slowly, baseline dementia. HEENT: Normal cephalic atraumatic. Pupils are equal round and reactive to light. Extraocular movements are intact. Oropharynx is pink with moist mucous membranes. No swelling of the mouth lips or tongue. Neck: Supple with a midline trachea. No meningeal signs or stiffness, no JVD or bruits. No Stridor. Chest: Clear to auscultation bilaterally. No wheezes or rhonchi. No increased work of breathing. Heart: regular rate and rhythm. Abdomen: Soft nontender, nondistended without rebound guarding or rigidity. Extremities: No cyanosis clubbing or edema. No calf tenderness or asymmetry Spine/Back. Non tender to palpation. No CVA tenderness Skin: Good turgor without rashes. Neurologic exam: Cranial nerves two through 12 are intact. Motor and sensation are intact and symmetrical throughout. Course 09:The patient was evaluated in room B06. A complete history and physical examination was performed. 1100: I updated the patient and his on his current lab and imaging results. 1230: I discussed the patient's case with HEMANT Gu, who will evaluate the patient for further management and care. 1245: Upon reevaluation, the patient is resting comfortably. I discussed laboratory and radiographic results with the patient and his . They verbalized agreement of the treatment plan. The patient will be evaluated for further management and care. Consultations Consultation #1: I discussed the patient's case with HEMANT Gu, who will evaluate the patient for further management and care. Time: 12:30 Administered Medications Acetaminophen (Tylenol) 650 mg PO Q4H PRN PRN Reason: Pain or Fever Stop: 02/02/19 15:11 Last Admin: 01/04/19 15:42 Dose: 650 mg Documented by: [id number] Admin: 01/04/19 10:18 Dose: 650 mg Documented by: [id number] Admin: 01/03/19 16:20 Dose: 650 mg Documented by: [id number] Atorvastatin Calcium (Lipitor) 20 mg PO HS RAJAT Stop: 02/02/19 20:59 Last Admin: 01/04/19 20:54 Dose: 20 mg Documented by: [id number] Admin: 01/03/19 21:04 Dose: 20 mg Documented by: [id number] Bicalutamide (Casodex) 50 mg PO QDD RAJAT Stop: 02/02/19 16:29 Last Admin: 01/04/19 15:42 Dose: 50 mg Documented by: [id number] Cosigned by: [id number] Admin: 01/03/19 16:20 Dose: 50 mg Documented by: [id number] Cosigned by: [id number] Carbidopa/Levodopa (Sinemet 25/100 Mg) 0.5 tab PO TID@0900,1200,2100 RAJAT Stop: 02/02/19 15:59 Last Admin: 01/05/19 13:46 Dose: 0.5 tab Documented by: [id number] Admin: 01/05/19 08:49 Dose: 0.5 tab Documented by: [id number] Admin: 01/04/19 20:54 Dose: 0.5 tab Documented by: [id number] Admin: 01/04/19 11:58 Dose: 0.5 tab Documented by: [id number] Admin: 01/04/19 07:39 Dose: 0.5 tab Documented by: [id number] Admin: 01/03/19 21:03 Dose: 0.5 tab Documented by: [id number] Admin: 01/03/19 16:21 Dose: 0.5 tab Documented by: [id number] Donepezil HCl (Aricept) 10 mg PO HS [facility] Stop: 02/02/19 20:59 Last Admin: 01/04/19 20:54 Dose: 10 mg Documented by: [id number] Admin: 01/03/19 21:04 Dose: 10 mg Documented by: [id number] Enoxaparin Sodium (Lovenox) 40 mg SQ Q24H [facility] Stop: 02/02/19 20:59 Last Admin: 01/04/19 20:55 Dose: 40 mg Documented by: [id number] Admin: 01/03/19 21:04 Dose: 40 mg Documented by: [id number] Hydralazine HCl (Apresoline) 5 mg PO Q4H PRN PRN Reason: SBP > 180 or DBP > 110 Stop: 02/03/19 17:44 Last Admin: 01/04/19 18:30 Dose: 5 mg Documented by: [id number] Lorazepam (Ativan) 0.5 mg PO DAILY PRN PRN Reason: Panic Attack(S) Stop: 02/02/19 15:11 Last Admin: 01/03/19 17:33 Dose: 0.5 mg Documented by: [id number] Memantine (Namenda) 10 mg PO BID [facility] Stop: 02/02/19 20:59 Last Admin: 01/05/19 08:48 Dose: 10 mg Documented by: [id number] Admin: 01/04/19 20:54 Dose: 10 mg Documented by: [id number] Admin: 01/04/19 07:38 Dose: 10 mg Documented by: [id number] Admin: 01/03/19 21:04 Dose: 10 mg Documented by: [id number] Polyethylene Glycol (Miralax Powder Packet) 17 gm PO QAM [facility] Stop: 02/03/19 08:59 Last Admin: 01/05/19 08:50 Dose: Not Given Documented by: [id number] Admin: 01/04/19 07:49 Dose: 17 gm Documented by: [id number] Quetiapine Fumarate (Seroquel) 50 mg PO BID [facility] Stop: 02/02/19 20:59 Last Admin: 01/05/19 08:48 Dose: 50 mg Documented by: [id number] Admin: 01/04/19 20:53 Dose: 50 mg Documented by: [id number] Admin: 01/04/19 07:39 Dose: 50 mg Documented by: [id number] Admin: 01/03/19 21:03 Dose: 50 mg Documented by: [id number] Trazodone HCl (Desyrel) 50 mg PO HS RAJAT Stop: 02/02/19 20:59 Last Admin: 01/04/19 20:54 Dose: 50 mg Documented by: [id number] Admin: 01/03/19 21:03 Dose: 50 mg Documented by: [id number] Vitamin D (Vitamin D3) 2,000 units PO QAM RAJAT Stop: 02/03/19 08:59 Last Admin: 01/05/19 08:48 Dose: 2,000 units Documented by: [id number] Admin: 01/04/19 07:40 Dose: 2,000 units Documented by: [id number] Discontinued Medications Sodium Chloride (Nss 1000ml) 1,000 mls @ 999 mls/hr IV .Q1H1M RAJAT Stop: 01/03/19 10:30 Last Infusion: 01/03/19 10:54 Dose: 0 mls/hr Documented by: [id number] Admin: 01/03/19 09:47 Dose: 999 mls/hr Documented by: [id number] Sodium Chloride (Nss 1000ml) 1,000 mls @ 100 mls/hr IV .Q10H RAJAT Stop: 02/02/19 15:11 Last Infusion: 01/04/19 16:06 Dose: 0 mls/hr Documented by: [id number] Infusion: 01/04/19 16:05 Dose: 0 mls/hr Documented by: [id number] Admin: 01/04/19 11:57 Dose: 100 mls/hr Documented by: [id number] Infusion: 01/04/19 11:43 Dose: 100 mls/hr Documented by: [id number] Admin: 01/04/19 01:43 Dose: 100 mls/hr Documented by: [id number] Infusion: 01/04/19 01:43 Dose: 100 mls/hr Documented by: [id number] Admin: 01/03/19 16:21 Dose: 100 mls/hr Documented by: [id number] Midodrine (Proamatine) 15 mg PO TID@0700,1200,1800 RAJAT Stop: 02/02/19 17:59 Last Admin: 01/04/19 12:32 Dose: 15 mg Documented by: [id number] Admin: 01/04/19 06:39 Dose: 15 mg Documented by: [id number] Admin: 01/03/19 17:37 Dose: 15 mg Documented by: [id number] Quetiapine Fumarate (Seroquel) 50 mg PO ONE ONE Stop: 01/03/19 12:23 Last Admin: 01/03/19 12:51 Dose: 50 mg Documented by: [id number] Trazodone HCl (Desyrel) 50 mg PO NOW ONE Stop: 01/03/19 12:22 Last Admin: 01/03/19 12:51 Dose: 50 mg Documented by: [id number] Medical Decision Making Differential Diagnosis Differential diagnosis includes: Etiologies such as UTI, trauma, dementia, dehydration, arrhythmia, electrolyte or metabolic abnormalites, as well as others were entertained. Medical Records Attestation: I reviewed the patient's medical records. Home Medications Current Medication List: was personally reviewed by me Laboratory Data Attestation: I reviewed the patient's lab results. Result diagrams: 01/03/19 09:34 01/04/19 05:19 Lab Results 01/03/19 01/03/19 01/03/19 Range/Units 09:34 09:34 10:03 WBC 6.48 (4.8-10.8) K/uL RBC 4.26 L (4.7-6.1) M/uL Hgb 13.2 L (14.0-18.0) g/dL Hct 39.5 L (42-52) % MCV 92.7 (80-100) fL MCH 31.0 (25-34) pg MCHC 33.4 (32-36) g/dL RDW Std Deviation 47.6 H (36.4-46.3) fL RDW Coeff of Quinn 14.0 (11.5-14.5) % Plt Count 263 (130-400) K/uL MPV 9.4 (7.4-10.4) fL Immature Gran % (Auto) 0.2 % Neut % (Auto) 59.4 % Lymph % (Auto) 27.8 % [place] % (Auto) 8.6 % Eos % (Auto) 3.5 % Baso % (Auto) 0.5 % Immature Gran # (Auto) 0.01 (0.00-0.02) K/uL Neut # (Auto) 3.85 (1.4-6.5) K/uL Lymph # (Auto) 1.80 (1.2-3.4) K/uL [place] # (Auto) 0.56 (0.11-0.59) K/uL Eos # (Auto) 0.23 (0-0.5) K/uL Baso # (Auto) 0.03 (0-0.2) K/uL PT (9.0-12.0) Seconds INR (0.9-1.1) APTT (21.0-31.0) Seconds PTT Ratio Sodium 139 (136-145) mmol/L Potassium (3.5-5.1) mmol/L Chloride 105 (98-107) mmol/L Carbon Dioxide 30 (21-32) mmol/L Anion Gap 4.0 (3-11) BUN 27 H (7-18) mg/dl Creatinine 1.58 H (0.6-1.4) mg/dl Est Cr Clr Drug Dosing 41.9 ml/min Est GFR ( Amer) 47.2 Est GFR (Non-Af Amer) 40.7 BUN/Creatinine Ratio 17.3 (10-20) Glucose 96 (70-99) mg/dl Calcium 8.8 (8.5-10.1) mg/dl Total Bilirubin 0.8 (0.2-1) mg/dl AST (15-37) U/L ALT 20 (12-78) U/L Alkaline Phosphatase 125 H (45-117) U/L Troponin I < 0.015 (0-0.045) ng/ml Total Protein 7.4 (6.4-8.2) gm/dl Albumin 3.7 (3.4-5.0) gm/dl Globulin 3.7 (2.5-4.0) gm/dl Albumin/Globulin Ratio 1.0 (0.9-2) TSH 5.490 H (0.300-4.500) uIu/ml Free T4 0.98 (0.8-1.6) ng/dl Urine Color Yellow Urine Appearance Clear (Clear) Urine pH 5.0 (4.5-7.5) Ur Specific [place] 1.026 (1.000-1.030) Urine Protein Negative (Negative) Urine Glucose (UA) Negative (Negative) Urine Ketones Negative (Negative) Urine Blood Negative (Negative) Urine Nitrite Negative (Negative) Urine Bilirubin Negative (Negative) Urine Urobilinogen Negative (Negative) Ur Leukocyte Esterase Negative (Negative) 01/03/19 01/03/19 01/04/19 Range/Units 10:49 10:49 05:19 WBC (4.8-10.8) K/uL RBC (4.7-6.1) M/uL Hgb (14.0-18.0) g/dL Hct (42-52) % MCV (80-100) fL MCH (25-34) pg MCHC (32-36) g/dL RDW Std Deviation (36.4-46.3) fL RDW Coeff of Quinn (11.5-14.5) % Plt Count (130-400) K/uL MPV (7.4-10.4) fL Immature Gran % (Auto) % Neut % (Auto) % Lymph % (Auto) % [place] % (Auto) % Eos % (Auto) % Baso % (Auto) % Immature Gran # (Auto) (0.00-0.02) K/uL Neut # (Auto) (1.4-6.5) K/uL Lymph # (Auto) (1.2-3.4) K/uL [place] # (Auto) (0.11-0.59) K/uL Eos # (Auto) (0-0.5) K/uL Baso # (Auto) (0-0.2) K/uL PT 10.1 (9.0-12.0) Seconds INR 1.0 (0.9-1.1) APTT 28.7 (21.0-31.0) Seconds PTT Ratio 1.1 Sodium 138 (136-145) mmol/L Potassium 4.0 3.8 (3.5-5.1) mmol/L Chloride 108 H (98-107) mmol/L Carbon Dioxide 25 (21-32) mmol/L Anion Gap 5.0 (3-11) BUN 21 H (7-18) mg/dl Creatinine 1.18 D (0.6-1.4) mg/dl Est Cr Clr Drug Dosing 55.8 ml/min Est GFR ( Amer) 67.1 Est GFR (Non-Af Amer) 57.9 BUN/Creatinine Ratio 17.5 (10-20) Glucose 91 (70-99) mg/dl Calcium 8.5 (8.5-10.1) mg/dl Total Bilirubin (0.2-1) mg/dl AST 17 (15-37) U/L ALT (12-78) U/L Alkaline Phosphatase (45-117) U/L Troponin I (0-0.045) ng/ml Total Protein (6.4-8.2) gm/dl Albumin (3.4-5.0) gm/dl Globulin (2.5-4.0) gm/dl Albumin/Globulin Ratio (0.9-2) TSH (0.300-4.500) uIu/ml Free T4 (0.8-1.6) ng/dl Urine Color Urine Appearance (Clear) Urine pH (4.5-7.5) Ur Specific [place] (1.000-1.030) Urine Protein (Negative) Urine Glucose (UA) (Negative) Urine Ketones (Negative) Urine Blood (Negative) Urine Nitrite (Negative) Urine Bilirubin (Negative) Urine Urobilinogen (Negative) Ur Leukocyte Esterase (Negative) Imaging Data Radiologist's Impression: Radiology results as stated below per my review and the radiologist's interpretation: XR chest 1V portable HISTORY: weakness COMPARISON: Chest 12/06/2016. FINDINGS: No pneumothorax. No pleural effusions. There are low lung volumes. The heart is normal in size. Bibasilar linear densities favor subsegmental atelectasis. Otherwise, the lungs are clear. IMPRESSION: No acute process. Electronically signed by: Kartik Robbins M.D. 01/03/2019 9:[address]AST CT DOSE: 537.48 mGy.cm HISTORY: weakness, frequent falls TECHNIQUE: Multiaxial CT images of the head were performed without the use of intravenous contrast. Automated exposure control was utilized for this study. A dose lowering technique was utilized adhering to the principles of ALARA. Comparison: None. Findings: The paranasal sinuses and mastoid air cells are clear. The calvarium and skull base are intact. There is no mass, hematoma, midline shift, acute infarct. White matter hypodensity is nonspecific but suggestive of microvascular ischemic change. The ventricles and sulci demonstrate mild age-related involutional changes. Bilateral basal ganglia calcifications. Impression: No acute intracranial abnormality. Atrophy and microvascular ischemic changes. Electronically signed by: Kartik Robbins M.D. 01/03/2019 10:34 AM ECG Data Attestation: I personally reviewed and interpreted this ECG as follows: Indication: weakness Rate (beats per minute): 70 Rhythm: normal sinus Findings: + PAC; no ST depression, no ST elevation and no acute ischemic change Comparison ECG Date: no prior available Blood Pressure Blood Pressure Findings: Elevated blood pressure Blood Pressure Disposition: Referred to patients primary care provider MDM Narrative This patient comes in as described above above. He is brought in by his . He was placed in room B6. He has a history of dementia as well as Parkinson's disease. he tends get orthostatic as well she is having a very hard time taking care of at home is falling frequently in fact he recently broke his right wrist. He became very weak again today. He is intermittently confused. She gets teary-eyed and talks about how difficulty is at home to take care of she does have some help. He did not fall again today. EKG was obtained which does not show any acute ischemic changes blood work was obtained there is nothing to suggest sepsis or significant electrolyte or metabolic abnormalities. CAT scan of his head was unremarkable. At this point, he was found to be orthostatic and his blood pressure dropped over 30 points and he became more tachycardic he was given some IV fluid bolus. I do think he needs to be admitted for hydration as well as safety and possible placement. I have consulted the [facility] hospitals to see him in the ER for these measures. Impression & Plan Weakness, Dementia, Parkinsons disease, Orthostatic hypotension Discharge Plan Visit Data *Final* Discharge Date/Time: 01/03/19 14:54 Chief Complaint: Confusion Stated Complaint: confusion, unable to void, hx dementia, parkinsons ED Provider: Hill Vieira Discharge Problem: Weakness, Dementia, Parkinsons disease, Orthostatic hypotension Patient Disposition: Admitted As Inpatient Discharge Instructions Interventions: ED Discharge Assessment Last Done: 01/03/19 14:54 The scribe's documentation has been prepared under my direction and personally reviewed by me in its entirety. I confirm that the note above accurately reflects all work, treatment, procedures, and medical decision making performed by me.
--- NOTE | 2019-01-05 17:00 | Hospitalist Progress Note ---
Date of Service January 05, 2019 Assessment & Plan (1) Ambulatory dysfunction: Due to Parkinson's disease, orthostatic hypotension with frequent falls, debility, and medications. - Minimize sedating meds as able - PT/OT - Likely rehab placement (2) Wrist fracture, right: Fractured his wrist after a fall on 12/30. He was supposed to be having surgery this Tuesday at an outside hospital but was seen in the office apparently by Dr. Ackerman in [place] earlier this week. His cast is causing him severe pain as per the and she also reports he has blisters underneath the cast. - His hand is swollen but it is neurovascularly intact - Continue Tylenol only as needed for pain - Consulted orthopedics - Will proceed with surgery on 01/06 - After surgery, have PT/OT re-assess to consider placement if able to get approved. (3) Orthostatic hypotension: As above, on multiple medications that can cause orthostasis including Sinemet, Seroquel, trazodone. Also on hydrocodone as above which could contribute to ambulatory dysfunction. Parkinson's disease itself could also be causing autonomic dysfunction. - Continue midodrine - Decreased trazodone dose back to the 50 mg once at bedtime - Unfortunately, it seems that without the Seroquel, he has significant agitation in the setting of his Lewy body dementia (4) Prostate cancer: With mets to the bones. - Followed by Dr. Brown of urology - Recently started on bicalutamide and had significant side effects in the past with Lupron (5) Parkinsons disease: As above - Continue Sinemet (6) Dementia: With Lewy body dementia as above. - Continue Seroquel, trazodone nightly - Continue Aricept, Namenda - Is on lorazepam BID which could make his mental status worse - Switched to PRN to avoid withdrawal (7) Hyperlipidemia: - Continue statin (8) Elevated TSH: TSH mildly elevated at 5.49. - Would recommend repeat TFTs in 4 weeks as an outpatient (9) DVT prophylaxis: Lovenox reports that patient is a DNR/DNI, and she is his primary decision maker given his significant dementia. Subjective No acute distress. Reports he is "feeling excellent" when asked how he is. Otherwise has trouble answering questions. Review of Systems Review of Systems: Unobtainable due to mental health condition Physical Exam Constitutional: WD/WN, vitals as above Eyes: no eyelid abnormality and no scleral abnormality ENMT: external ear and nose normal, oropharynx normal Neck: trachea midline, no thyromegaly Respiratory: normal respiratory effort, lungs clear to auscultation Cardiovascular: RRR, no murmur, no edema Gastrointestinal (Abdomen): normal bowel sounds, soft, nontender, no hepatosplenomegaly Musculoskeletal: Extremities: + extremities abnormal to inspection (Right forearm and wrist in cast, right hand significantly swollen, sensation intact to light touch, good cap refill, able to wiggle fingers and thumb), no cyanosis and no clubbing Skin: no rashes, warm and dry Neurologic: moves all extremities and awake; no focal motor deficits Psychiatric: Orientation: alert, oriented to person and cooperative; + not oriented to place and + not oriented to time Motor Behavior: n tremor Results & Data Vital Signs (Past 12 Hours) Vital Signs Temp Pulse Resp BP Pulse Ox 01/05/19 15:12 37.3 C 65 18 180/77 H 92 01/05/19 07:05 36.8 C 56 L 16 176/79 H 91 (1) Dementia Dementia type: Lewy body dementia
[2019-01-05] MEDS: BICALUTAMIDE 50 MG TAB PO SCH (17:47)
[2019-01-05] MEDS: DONEPEZIL HCL 10 MG TAB PO SCH (20:01)
[2019-01-05] MEDS: ATORVASTATIN 20 MG TAB PO SCH (20:01)
[2019-01-05] MEDS: TRAZODONE HCL 50 MG TAB PO SCH (20:02)
--- NOTE | 2019-01-05 21:32 | Progress Note ---
DATE: 01/04/2019 SUBJECTIVE: Twan was seen at bedside today. He notes a continued pain in the wrist. Denies any other complaints. Baseline dementia is noted. OBJECTIVE: Right hand exam, well-fitted cast. He has moderate swelling of the digits. He has no pain with passive range of motion of the digits. He can actively flex and extend the digits. ASSESSMENT: 1. Status post right distal radius fracture. 2. Dementia. PLAN: I discussed findings and treatment with the patient's family, Alberta Houston, and she wishes to proceed with surgical treatment and fixation of the wrist. 1. Open reduction internal fixation right intra-articular 3-part distal radius fracture. We obtained verbal consent over the phone. She understands the risks and benefits and expected outcomes. Plan for surgical treatment in the morning. Made n.p.o. after midnight. 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
[2019-01-06] MEDS: HydrALAZINE 10 MG TAB PO PRN ×2 (00:03→10:59)
[2019-01-06 05:43] LABS: Hematocrit (blood only) 38.6 % (42-52); Hemoglobin 13.3 g/dL (14.0-18.0); Mean Corpuscular Hgb Conc 34.5 g/dL (32-36); Mean Corpuscular Volume 90.6 fL (80-100); Platelet Count 268 K/uL (130-400); RDW Coefficient of Variation 13.6 % (11.5-14.5); RDW Standard Deviation 44.9 fL (36.4-46.3); Red Blood Count 4.26 M/uL (4.7-6.1)
[2019-01-06] MEDS ORDERED: CEFAZOLIN 2000MG 2,000 MG/15 ML SYR IV SCH (06:00)
[2019-01-06 06:10] LABS: Creatinine Clr Calc Pharmacy 54.9 ml/min; Est GFR (African American) 65.8; Est GFR (Non-African American) 56.8
[2019-01-06] MEDS ORDERED: ONDANSETRON INJ 2 MG/ML 2 ML VIAL IV PRN (06:51)
[2019-01-06] MEDS ORDERED: fentaNYL citrate 100 MCG/2 ML VIAL IV PRN (06:51)
[2019-01-06] MEDS ORDERED: LABETALOL HCL IV 5 MG/ML 20ML IV PRN (06:51)
[2019-01-06] MEDS ORDERED: ePHEDrine sulfate 50 MG/ML AMP IV PRN (06:51)
[2019-01-06] MEDS ORDERED: PHENYLEPHRINE 100MCG/ML 5ML SYR IV PRN (06:51)
[2019-01-06] MEDS ORDERED: HYDROmorphone INJ 1 MG/ML SYRINGE IV PRN (06:51)
[2019-01-06] MEDS ORDERED: ATROPINE SULFATE 0.1 MG/ML 10ML SYR IV PRN (06:51)
[2019-01-06] MEDS ORDERED: PROPOFOL IV EMULSION 10 MG/ML 20 ML VIAL IV ONE (06:53)
[2019-01-06] MEDS ORDERED: fentaNYL citrate 100 MCG/2 ML VIAL ONE ×2 (06:53→08:35)
[2019-01-06] MEDS ORDERED: LIDOCAINE HCL 2% 2 ML VIAL/AMP(20MG/ML) INFIL ONE (06:53)
[2019-01-06] MEDS ORDERED: ROPIVACAINE 0.5% 5 MG/ML 30 ML VIAL ONE (06:55)
--- NOTE | 2019-01-06 07:34 | History & Physical Bridge Note ---
Date of Service January 06, 2019 History & Physical Bridge Note I have examined the patient, reviewed the History & Physical and in the interval since the performance of the History & Physical I have noted the following changes of clinical significance: no changes noted will plan for right ORIF of distal radius fracture
[2019-01-06] MEDS ORDERED: CEFAZOLIN 250 MG/ML 1 GM VIAL ONE ×2 (07:47)
[2019-01-06] MEDS ORDERED: ONDANSETRON INJ 2 MG/ML 2 ML VIAL ONE (08:25)
--- NOTE | 2019-01-06 09:16 | Post Operative Brief Note ---
Immediate Post Op Note v1 Date of Surgery January 06, 2019 Pre & Post Diagnosis Operation Date: 01/06/19 07:30 Pre-Op Diagnosis: Right Distal Radius Fracture Post-Op Diagnosis: Right Distal Radius Fracture Procedure Operation Date: 01/06/19 07:30 Actual Procedures p Right Distal Radius Fracture Open Reduction Internal Fixation(Right) - Aashish Ackerman MD Surgeon Aashish Ackerman MD Public Relations Writer Roman campos Estimated Blood Loss 10 Findings Consistent with Post-Op Diagnosis
--- NOTE | 2019-01-06 09:52 | Fluoroscopy Report ---
FL wrist RT 2V CLINICAL HISTORY: ORIF RIGHT WRIST COMPARISON STUDY: None. FLUOROSCOPY TIME: 10 seconds.. FINDINGS: Status post internal fixation of a distal radius fracture with cortical plate and screws. T he hardware is intact. Alignment is near-anatomic. 6 fluoroscopic spot images. IMPRESSION: Fluoroscopy provided for internal fixation of a distal radius fracture. Electronically signed by: Kartik Robbins M.D. 01/06/2019 9:50 AM
--- NOTE | 2019-01-06 10:23 | Anesthesiology Progress Note ---
Date of Service January 06, 2019 Anesthesia Post Procedure Vital Signs Vital Signs: Temp Pulse Pulse Resp BP Pulse Ox 01/06/19 10:15 36.4 C L 58 L 16 171/74 H 95 01/06/19 10:05 54 L 14 165/76 H 98 01/06/19 09:55 59 L 16 159/82 H 98 01/06/19 09:45 36.2 C L 61 18 181/79 H 96 01/06/19 06:09 36.6 C 55 L 16 173/83 H 93 01/05/19 23:59 36.6 C 59 L 16 194/77 H 94 01/05/19 15:12 37.3 C 65 18 180/77 H 92 Pain Intensity Bilateral Generalized: Pain Intensity: 0 Transfer of Care Handoff Completed per policy Notes Mental Status: alert / awake / arousable Patient Amnestic to Procedure: Yes Nausea / Vomiting: adequately controlled Pain: adequately controlled Airway Patency, RR, SpO2: stable & adequate BP & HR: stable & adequate Hydration State: stable & adequate Anesthetic Complications: no major complications apparent
[2019-01-06] MEDS: MEMANTINE HCL 10 MG TAB PO SCH ×2 (10:48→20:00)
[2019-01-06] MEDS: QUETIAPINE FUMARATE 25 MG TABLET PO SCH ×2 (10:49→19:59)
[2019-01-06] MEDS: CARBIDOPA/LEVODOPA 25/100MG TAB PO SCH ×3 (10:49→19:59)
[2019-01-06] MEDS: CHOLECALCIFEROL 1,000 UNITS TAB PO SCH (10:50)
[2019-01-06] MEDS: POLYETHYLENE (MIRALAX) 17 GM PACK PO SCH (10:52)
--- NOTE | 2019-01-06 15:08 | Hospitalist Progress Note ---
Date of Service January 06, 2019 Assessment & Plan (1) Ambulatory dysfunction: Due to Parkinson's disease, orthostatic hypotension with frequent falls, debility, and medications. - Minimize sedating meds as able - PT/OT starting tomorrow - Likely rehab placement, will d/w CM (2) Wrist fracture, right: Fractured his wrist after a fall on 12/30. He was supposed to be having surgery this Tuesday at an outside hospital but was seen in the office apparently by Dr. Ackerman in [place] earlier this week. His cast is causing him severe pain as per the and she also reports he has blisters underneath the cast. - His hand is swollen but it is neurovascularly intact - Continue Tylenol only as needed for pain - Consulted orthopedics - OR on 01/06 for open reduction/internal fixation of the radial head - After surgery, have PT/OT re-assess to consider placement if able to get approved. (3) Orthostatic hypotension: As above, on multiple medications that can cause orthostasis including Sinemet, Seroquel, trazodone. Also on hydrocodone as above which could contribute to ambulatory dysfunction. Parkinson's disease itself could also be causing autonomic dysfunction. - Continue midodrine - Decreased trazodone dose back to the 50 mg once at bedtime - Unfortunately, it seems that without the Seroquel, he has significant agitation in the setting of his Lewy body dementia (4) Prostate cancer: With mets to the bones. - Followed by Dr. Brown of urology - Recently started on bicalutamide and had significant side effects in the past with Lupron (5) Parkinsons disease: As above - Continue Sinemet (6) Dementia: With Lewy body dementia as above. - Continue Seroquel, trazodone nightly - Continue Aricept, Namenda - Is on lorazepam BID which could make his mental status worse - Switched to PRN to avoid withdrawal (7) Hyperlipidemia: - Continue statin (8) Elevated TSH: TSH mildly elevated at 5.49. - Would recommend repeat TFTs in 4 weeks as an outpatient (9) DVT prophylaxis: Lovenox reports that patient is a DNR/DNI, and she is his primary decision maker given his significant dementia. Subjective patient seen after surgery today sleeping a lot after anesthesia reviewed op note, surgery went well, no complications had open reduction and internal fixation of the radial fracture vitals stable reviewed labs, CBC and Cr stable Review of Systems Review of Systems: Unobtainable due to cognitive status Physical Exam Constitutional: WD/WN, vitals as above no acute distress Eyes: PERRL, conjunctivae normal, anicteric sclerae ENMT: external ear and nose normal, oropharynx normal Neck: trachea midline, no thyromegaly Respiratory: normal respiratory effort, lungs clear to auscultation Auscultation: + diminished lung sounds (bases) Cardiovascular: RRR, no murmur, no edema Gastrointestinal (Abdomen): normal bowel sounds, soft, nontender, no hepatosplenomegaly Musculoskeletal: no cyanosis or clubbing, extremities motor strength 5/5 Extremities: + extremities abnormal to inspection (right forearm in cast, s/p de [place] rgery) Skin: no rashes, warm and dry Neurologic: patellar DTR's 2+ bilat, sensation intact and PERRL, EOMI, accommodation nl, no face palsy, no dysarthria Psychiatric: Orientation: + not alert (sleepy after surgery), + not oriented to person, + not oriented to place and + not oriented to time Lymphatic: no cervical or axillary lymphadenopathy Results & Data Vital Signs (Past 12 Hours) Vital Signs Temp Pulse Pulse Pulse Pulse Resp BP 01/06/19 13:30 36.5 C 84 12 110/62 01/06/19 12:40 36.6 C 87 14 149/80 H 01/06/19 11:30 36.4 C L 54 L 16 186/76 H 01/06/19 10:59 35.9 C L 59 L 14 191/76 H 01/06/19 10:30 36.5 C 64 16 180/75 H 01/06/19 10:25 61 14 164/78 H 01/06/19 10:15 36.4 C L 58 L 16 171/74 H 01/06/19 10:05 54 L 14 165/76 H 01/06/19 09:55 59 L 16 159/82 H 01/06/19 09:45 36.2 C L 61 18 181/79 H 01/06/19 06:09 36.6 C 55 L 16 173/83 H Pulse Ox 01/06/19 13:30 93 01/06/19 12:40 90 01/06/19 11:30 97 01/06/19 10:59 96 01/06/19 10:30 93 01/06/19 10:25 94 01/06/19 10:15 95 01/06/19 10:05 98 01/06/19 09:55 98 01/06/19 09:45 96 01/06/19 06:09 93 Laboratory Results Laboratory Results - last 24 hr 01/06/19 01/06/19 05:23 05:23 WBC 5.30 RBC 4.26 L Hgb 13.3 L Hct 38.6 L MCV 90.6 MCH 31.2 MCHC 34.5 RDW Std Deviation 44.9 RDW Coeff of Quinn 13.6 Plt Count 268 MPV 9.0 Creatinine 1.20 Est Cr Clr Drug Dosing 54.9 Est GFR ( Amer) 65.8 Est GFR (Non-Af Amer) 56.8 Medications Administered Current Inpatient Medications Acetaminophen (Tylenol) 650 mg PO Q4H PRN PRN Reason: Pain or Fever Stop: 02/02/19 15:11 Last Admin: 01/04/19 15:42 Dose: 650 mg Documented by: Atorvastatin Calcium (Lipitor) 20 mg PO [facility] Stop: 02/02/19 20:59 Last Admin: 01/05/19 20:01 Dose: 20 mg Documented by: Bicalutamide (Casodex) 50 mg PO QDD [facility] Stop: 02/02/19 16:29 Last Admin: 01/05/19 17:47 Dose: 50 mg Documented by: Carbidopa/Levodopa (Sinemet 25/100 Mg) 0.5 tab PO TID@0900,1200,2100 [facility] Stop: 02/02/19 15:59 Last Admin: 01/06/19 12:24 Dose: 0.5 tab Documented by: Donepezil HCl (Aricept) 10 mg PO HS [facility] Stop: 02/02/19 20:59 Last Admin: 01/05/19 20:01 Dose: 10 mg Documented by: Enoxaparin Sodium (Lovenox) 40 mg SQ Q24H [facility] Stop: 02/02/19 20:59 Last Admin: 01/04/19 20:55 Dose: 40 mg Documented by: Hydralazine HCl (Apresoline) 5 mg PO Q4H PRN PRN Reason: SBP > 180 or DBP > 110 Stop: 02/03/19 17:44 Last Admin: 01/06/19 10:59 Dose: 5 mg Documented by: Cefazolin Sodium (Ancef 2000mg) 2,000 mg in 15 mls @ 3.75 mls/min IV PREOP [facility] Stop: 01/06/19 18:00 Last Admin: 01/06/19 11:50 Dose: Not Given Documented by: Lorazepam (Ativan) 0.5 mg PO DAILY PRN PRN Reason: Panic Attack(S) Stop: 02/02/19 15:11 Last Admin: 01/03/19 17:33 Dose: 0.5 mg Documented by: Memantine (Namenda) 10 mg PO BID [facility] Stop: 02/02/19 20:59 Last Admin: 01/06/19 10:48 Dose: 10 mg Documented by: Polyethylene Glycol (Miralax Powder Packet) 17 gm PO QAM [facility] Stop: 02/03/19 08:59 Last Admin: 01/06/19 10:52 Dose: 17 gm Documented by: Quetiapine Fumarate (Seroquel) 50 mg PO BID [facility] Stop: 02/02/19 20:59 Last Admin: 01/06/19 10:49 Dose: 50 mg Documented by: Trazodone HCl (Desyrel) 50 mg PO HS [facility] Stop: 02/02/19 20:59 Last Admin: 01/05/19 20:02 Dose: 50 mg Documented by: Vitamin D (Vitamin D3) 2,000 units PO QAM [facility] Stop: 02/03/19 08:59 Last Admin: 01/06/19 10:50 Dose: 2,000 units Documented by: (1) Dementia Dementia type: Lewy body dementia
[2019-01-06] MEDS: BICALUTAMIDE 50 MG TAB PO SCH (17:57)
[2019-01-06] MEDS: DONEPEZIL HCL 10 MG TAB PO SCH (19:59)
[2019-01-06] MEDS: ATORVASTATIN 20 MG TAB PO SCH (19:59)
[2019-01-06] MEDS: TRAZODONE HCL 50 MG TAB PO SCH (20:00)
[2019-01-07] MEDS: CARBIDOPA/LEVODOPA 25/100MG TAB PO SCH ×3 (08:23→20:02)
[2019-01-07] MEDS: QUETIAPINE FUMARATE 25 MG TABLET PO SCH ×2 (08:24→20:03)
[2019-01-07] MEDS: MEMANTINE HCL 10 MG TAB PO SCH ×2 (08:24→20:02)
[2019-01-07] MEDS: CHOLECALCIFEROL 1,000 UNITS TAB PO SCH (08:25)
[2019-01-07] MEDS: POLYETHYLENE (MIRALAX) 17 GM PACK PO SCH (08:37)
--- NOTE | 2019-01-07 10:54 | Progress Note ---
DATE: 01/07/2019 SUBJECTIVE: Twan is seen today. He is currently very ambulatory in the halls. He has no complaints of pain today. OBJECTIVE: Right hand exam shows a well-fitted volar splint. He has mild swelling in the fingers. He can flex and extend the digits. ASSESSMENT: Postop day #1, right ORIF of distal radius fracture. PLAN: At this point in time, he may continue activity as he feels tolerated. He should not require any further orthopedic treatment. RECOMMENDATIONS: Continue cast. We will sign off. He may follow up with Dr. Ackerman or Dr. Ackerman's PA, Gosia White in 10-14 days.
--- NOTE | 2019-01-07 14:06 | Hospitalist Progress Note ---
Date of Service January 07, 2019 Assessment & Plan (1) Ambulatory dysfunction: Due to Parkinson's disease, orthostatic hypotension with frequent falls, debility, and medications. - Minimize sedating meds as able - PT/OT evaluations PT: walked well, 225 feet but easily distracted OT: no safe to return home, recommends SNF rehab, december end of needing placement (2) Wrist fracture, right: Fractured his wrist after a fall on 12/30. He was supposed to be having surgery this Tuesday at an outside hospital but was seen in the office apparently by Dr. Ackerman in [place] earlier this week. His cast is causing him severe pain as per the and she also reports he has blisters underneath the cast. - Continue Tylenol only as needed for pain - Consulted orthopedics - OR on 01/06 for open reduction/internal fixation of the radial head tolerated surgery well, orders per Dr. Ackerman (3) Orthostatic hypotension: As above, on multiple medications that can cause orthostasis including Sinemet, Seroquel, trazodone. Also on hydrocodone as above which could contribute to ambulatory dysfunction. Parkinson's disease itself could also be causing autonomic dysfunction. - Continue midodrine - Decreased trazodone dose back to the 50 mg once at bedtime, continue this dose on discharge - Unfortunately, it seems that without the Seroquel, he has significant agitation in the setting of his Lewy body dementia (4) Prostate cancer: With mets to the bones. - Followed by Dr. Brown of urology - Recently started on bicalutamide and had significant side effects in the past with Lupron (5) Parkinsons disease: As above - Continue Sinemet (6) Dementia: With Lewy body dementia as above. - Continue Seroquel, trazodone nightly - Continue Aricept, Namenda - Is on lorazepam BID which could make his mental status worse - Switched to PRN to avoid withdrawal (7) Hyperlipidemia: - Continue statin (8) Elevated TSH: TSH mildly elevated at 5.49. - Would recommend repeat TFTs in 4 weeks as an outpatient (9) DVT prophylaxis: Lovenox reports that patient is a DNR/DNI, and she is his primary decision maker given his significant dementia. Plan: have CM look into SNF rehab, he is medically stable Subjective patient laying in bed, pleasant, denies serious pain in wrist he does not comprehend all my questions due to dementia per RN he ate, ambulating with assistance to the bathroom vitals stable Review of Systems Review of Systems: Unobtainable due to cognitive status Physical Exam Constitutional: WD/WN, vitals as above no acute distress Eyes: PERRL, conjunctivae normal, anicteric sclerae ENMT: external ear and nose normal, oropharynx normal Neck: trachea midline, no thyromegaly Respiratory: normal respiratory effort, lungs clear to auscultation Auscultation: + diminished lung sounds (bases) Cardiovascular: RRR, no murmur, no edema Gastrointestinal (Abdomen): normal bowel sounds, soft, nontender, no hepatosplenomegaly Musculoskeletal: no cyanosis or clubbing, extremities motor strength 5/5 Extremities: + extremities abnormal to inspection (right forearm in cast, s/p surgery) Skin: no rashes, warm and dry Neurologic: patellar DTR's 2+ bilat, sensation intact and PERRL, EOMI, accommodation nl, no face palsy, no dysarthria Psychiatric: Orientation: alert and oriented to person; + not oriented to place and + not oriented to time Lymphatic: no cervical or axillary lymphadenopathy Results & Data Vital Signs (Past 12 Hours) Vital Signs Temp Pulse Pulse Resp BP Pulse Ox 01/07/19 12:18 60 143/75 H 01/07/19 07:40 37 C 69 18 178/75 H 91 Medications Administered Current Inpatient Medications Acetaminophen (Tylenol) 650 mg PO Q4H PRN PRN Reason: Pain or Fever Stop: 02/02/19 15:11 Last Admin: 01/04/19 15:42 Dose: 650 mg Documented by: Atorvastatin Calcium (Lipitor) 20 mg PO HS [facility] Stop: 02/02/19 20:59 Last Admin: 01/06/19 19:59 Dose: 20 mg Documented by: Bicalutamide (Casodex) 50 mg PO QDD [facility] Stop: 02/02/19 16:29 Last Admin: 01/06/19 17:57 Dose: 50 mg Documented by: Carbidopa/Levodopa (Sinemet 25/100 Mg) 0.5 tab PO TID@0900,1200,2100 [facility] Stop: 02/02/19 15:59 Last Admin: 01/07/19 08:23 Dose: 0.5 tab Documented by: Donepezil HCl (Aricept) 10 mg PO HS [facility] Stop: 02/02/19 20:59 Last Admin: 01/06/19 19:59 Dose: 10 mg Documented by: Enoxaparin Sodium (Lovenox) 40 mg SQ Q24H [facility] Stop: 02/02/19 20:59 Last Admin: 01/04/19 20:55 Dose: 40 mg Documented by: Hydralazine HCl (Apresoline) 5 mg PO Q4H PRN PRN Reason: SBP > 180 or DBP > 110 Stop: 02/03/19 17:44 Last Admin: 01/06/19 10:59 Dose: 5 mg Documented by: Lorazepam (Ativan) 0.5 mg PO DAILY PRN PRN Reason: Panic Attack(S) Stop: 02/02/19 15:11 Last Admin: 01/03/19 17:33 Dose: 0.5 mg Documented by: Memantine (Namenda) 10 mg PO BID [facility] Stop: 02/02/19 20:59 Last Admin: 01/07/19 08:24 Dose: 10 mg Documented by: Polyethylene Glycol (Miralax Powder Packet) 17 gm PO QAM [facility] Stop: 02/03/19 08:59 Last Admin: 01/07/19 08:37 Dose: 17 gm Documented by: Quetiapine Fumarate (Seroquel) 50 mg PO BID [facility] Stop: 02/02/19 20:59 Last Admin: 01/07/19 08:24 Dose: 50 mg Documented by: Trazodone HCl (Desyrel) 50 mg PO HS [facility] Stop: 02/02/19 20:59 Last Admin: 01/06/19 20:00 Dose: 50 mg Documented by: Vitamin D (Vitamin D3) 2,000 units PO QAM [facility] Stop: 02/03/19 08:59 Last Admin: 01/07/19 08:25 Dose: 2,000 units Documented by: (1) Dementia Dementia type: Lewy body dementia
[2019-01-07] MEDS: BICALUTAMIDE 50 MG TAB PO SCH (17:44)
[2019-01-07] MEDS: LORazepam 0.5 MG TAB PO PRN (19:47)
[2019-01-07] MEDS: TRAZODONE HCL 50 MG TAB PO SCH (20:02)
[2019-01-07] MEDS: ATORVASTATIN 20 MG TAB PO SCH (20:03)
[2019-01-07] MEDS: DONEPEZIL HCL 10 MG TAB PO SCH (20:03)
[2019-01-07] MEDS: ENOXAPARIN INJ 40 MG/0.4 ML SYR SQ SCH (21:22)
--- NOTE | 2019-01-08 07:08 | Operative Report ---
REVISED REPORT DATE OF OPERATION: 01/06/2019 PREOPERATIVE DIAGNOSIS: Right intra-articular 2-part distal radius fracture. POSTOPERATIVE DIAGNOSIS: Right intra-articular 2-part distal radius fracture. PROCEDURE: ORIF right intra-articular 2-part distal radius fracture. SURGEON: Richard Ackerman MD BUSINESS INTELLIGENCE MANAGER: Shorty Mcdaniel PA-C who was necessary for prepping, draping, setup, retraction, exposure and closure. ANESTHESIA: General with regional block. INDICATIONS: This is a gentleman with a distal radius fracture with marked displacement. He presents for ORIF. The risks and benefits have been discussed including, but not limited to, risk of infection, nerve injury, stiffness, loss of motion, failure to improve, etc. Reasonable outcomes and options of treatment were discussed. An explanation of appropriate alternatives to the procedure that may be advantageous were discussed and their risks and benefits, as well as the risks and benefits of not proceeding with treatment. I offered to answer any additional inquiries concerning the treatment involved. All the patient's questions were answered. The patient is agreeable, understanding of the treatment plan and alternatives, and wishes to proceed with the treatment plan. DESCRIPTION OF PROCEDURE: A longitudinal incision was made over the FCR tendon sheath. Dissection was carried down through the skin and subcutaneous tissue. The FCR tendon sheath was sharply incised and the FCR was swept in an ulnar direction. The FPL was swept in an ulnar direction as well. The pronator was identified. This was taken off. Displaced fracture was identified. There was no evidence of intra-articular extension on the volar side, but the dorsal side did show intra-articular extension with dorsal comminution. I performed an open reduction maneuver. The patient had a fairly large bone and I elected to proceed with a wide volar locking plate. A Biomet Crosslock plate was applied, standard length and wide width. This was placed with oblong screw first. This was adjusted for height. I placed screws distally in the proximal row. This did result in excellent stability of the fracture. Screws were placed in a locking fashion distally. A total of 4 screws were placed proximally in a combination of locking and nonlocking fashion. Stability was checked and this was adequate. There was no evidence of DRUJ instability in pronation, supination and neutral and there was no evidence of crepitation with range of motion. Incision was copiously irrigated. Pronator was closed with 2-0 Vicryl. Tourniquet was let down, hemostasis was obtained with bipolar electrocautery. Subcutaneous layer was closed with 4-0 Monocryl, running 3-0 Prolene stitch was used in a subcuticular fashion on the skin. Steri-Strips were applied. The patient was placed in a volar splint and sent to PACU in stable condition. Postop plan will be approximately 3-4 weeks of cast immobilization for distal radius fracture. ADDENDUM: Customs Compliance Manager was Shorty Mcdaniel PA-C who was necessary for prepping, draping, setup, retraction, exposure and closure. I attest to the content of the Intraoperative Record and any orders documented therein. Any exceptions are noted below. MTDD
[2019-01-08 07:37] LABS: Basophils # (auto) 0.04 K/uL (0-0.2); Basophils % (auto) 0.6 %; Eosinophils # (auto) 0.26 K/uL (0-0.5); Eosinophils % (auto) 4.1 %; Hemoglobin 12.8 g/dL (14.0-18.0); Immature Granulocytes # (auto) 0.01 K/uL (0.00-0.02); Immature Granulocytes % (auto) 0.2 %; Lymphocytes # (auto) 2.08 K/uL (1.2-3.4); Lymphocytes % (auto) 32.7 %; Mean Corpuscular Hgb Conc 35.6 g/dL (32-36); Mean Platelet Volume 9.1 fL (7.4-10.4); Monocytes # (auto) 0.77 K/uL (0.11-0.59); Monocytes % (auto) 12.1 %; Neutrophils # (auto) 3.21 K/uL (1.4-6.5); Neutrophils % (auto) 50.3 %; Platelet Count 284 K/uL (130-400); RDW Coefficient of Variation 13.6 % (11.5-14.5); RDW Standard Deviation 44.8 fL (36.4-46.3); White Blood Count 6.37 K/uL (4.8-10.8)
[2019-01-08 08:08] LABS: BUN Creatinine Ratio 19.8 (10-20); Calcium 9.3 mg/dl (8.5-10.1); Creatinine Clr Calc Pharmacy 56.3 ml/min; Est GFR (African American) 67.8; Est GFR (Non-African American) 58.5; Potassium 3.8 mmol/L (3.5-5.1)
[2019-01-08] MEDS: CARBIDOPA/LEVODOPA 25/100MG TAB PO SCH ×2 (08:40→12:26)
[2019-01-08] MEDS: QUETIAPINE FUMARATE 25 MG TABLET PO SCH (08:42)
[2019-01-08] MEDS: CHOLECALCIFEROL 1,000 UNITS TAB PO SCH (08:42)
[2019-01-08] MEDS: MEMANTINE HCL 10 MG TAB PO SCH (08:43)
[2019-01-08] MEDS: POLYETHYLENE (MIRALAX) 17 GM PACK PO SCH (08:54)
[2019-01-08] MEDS: MIDODRINE HCL 10 MG TAB PO SCH ×2 (12:31→18:02)
--- NOTE | 2019-01-08 17:03 | Discharge Summary ---
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 He had 1 of his usual falls 4 days ago in which he sustained a fracture of the right wrist and has been in a cast. His who is his primary columnist/commentator has been giving him hydrocodone as needed for pain since that time as he has been having severe pain and swelling in the right hand. The also reports that about 10 days ago, she started giving him trazodone 25 mg in the morning and 25 mg at bedtime rather than the 50 mg at bedtime but is prescribed-she reports that she thought that is what was on the bottle as far as the instructions went. The reports when he got out of bed this morning, he was shuffling and leaning forward and she had to hold onto him to get him to keep from falling and he was a lot weaker than usual. No focal weakness or facial droop. The patient is unable to tell me anything. Apparently he was getting agitated in the ER and they gave him his morning dose of trazodone and Seroquel and now he is awake and tells me his name, and is cooperative, but does not give me any history. The reports that she feels like she cannot handle him at home and is considering placement in a rehab. His creatinine is mildly elevated at 1.58 and she is unsure if this is his baseline or not. He was also positive on orthostatic blood pressures in the ER. He was given IV fluids. Admission Exam Per Admitting Provider Constitutional: WD/WN, vitals as above Eyes: PERRL (Pupils pinpoint but reactive, equal); no eyelid abnormality and no scleral abnormality ENMT: external ear and nose normal, oropharynx normal Neck: trachea midline, no thyromegaly Respiratory: normal respiratory effort, lungs clear to auscultation Cardiovascular: RRR, no murmur, no edema Gastrointestinal (Abdomen): normal bowel sounds, soft, nontender, no hepatosplenomegaly Musculoskeletal: Extremities: + extremities abnormal to inspection (Right forearm and wrist in cast, right hand significantly swollen, sensation intact to light touch, good cap refill, able to wiggle fingers and thumb), no cyanosis and no clubbing Skin: no rashes, warm and dry Neurologic: moves all extremities and awake; no focal motor deficits Psychiatric: Orientation: alert, oriented to person and cooperative; + not oriented to place and + not oriented to time Motor Behavior: n tremor Principal Diagnosis Right Wrist Fracture, Orthostatic Hypotension Discharge Exam General: Resting comfortably in no apparent distress HEENT: NC/AT; PERRLA with EOMI; [place] conjunctiva, MMM. No erythema of posterior pharynx Neck: Supple and nontender Cardiac: RRR w/o murmurs, gallops or rubs Lungs: CTA bilaterally; No rhonchi, wheezing, or rales Abdomen: Bowel normoactive X 4; Nontender to palpation Extremities: Warm. No edema present Neuro: No focal weakness; alert to person, not to place or time. Skin: No rash Discharge Data Allergies Allergy/AdvReac Type Severity Reaction Status Date / Time No Known Allergies Allergy Unverified 01/03/19 10:19 Consultations 01/03/19 13:14 ED Decision to Admit Stat 01/03/19 15:12 Consult Case Management - Discharge Planning Routine 01/03/19 15:36 Consult Orthopedic Surgery Routine Procedures Performed Operation Date: 01/06/19 07:30 Actual Procedures p Right Distal Radius Fracture Open Reduction Internal Fixation(Right) - Jose Juan Ackerman MD Ordered Studies 01/03/19 09:24 CT head/brain wo con Stat CXR 01/06/19 06:51 US - OR guided needle placemen Routine Wrist XR 01/06/19 07:30 FL fluoroscopy <1hr Routine FL wrist RT 2V Routine Hospital Course (1) Ambulatory dysfunction: Due to Parkinson's disease, orthostatic hypotension with frequent falls, debility, and medications. Minimize sedating meds. PT/OT did not recommend ongoing therapy. (2) Wrist fracture, right: Fractured his wrist after a fall on 12/30. Was scheduled for surgery at outside hospital last week but developed blisters underneath cast. Consulted orthopedics, s/p open reduction/internal fixation of radial head on 01/06. Tylenol for pain control; avoided narcotics. Will need to f/u with ortho 10-14 days post op. (3) Orthostatic hypotension: May be medication induced vs. Parkinsons disease autonomic dysfunction. Home Midodrine was held due to HTN; resumed at lower dose of 5 mg TID on day of discharge. Decreased trazodone to 50 mg qhs. Will need to continue seroquel at home dose as pt. has significant lewy body dementia leading to agitation. (4) Prostate cancer: With isabella metastasis. Pt. was previously enrolled in hospice, was revoked for hospital admission. Discussed hospice with -- she would like to discuss bone scan results from [facility] with urology prior to transitioning back to hospice. Scheduled appt with urology on 01/16. Did arrange [facility] -- can easily transition to [facility] if desired in the future. Recently started on bicalutamide. (5) Parkinsons disease: Continued Sinemet. (6) Dementia: With Lewy body dementia. Continued Seroquel; Trazodone qhs. Continued Aricept, Namenda. Ativan BID prn. (7) Hyperlipidemia: Continued statin. (8) Elevated TSH: TSH mildly elevated at 5.49. Will need repeat labs as outpatient. (9) DVT prophylaxis: Lovenox. Pt. was stable for discharge to home on 01/08/19 with home health services. Total Time Total Time Spent Total Time Spent (In Minutes): >30 minutes Total Time Includes: Examination of the Patient, Discharge Planning, Medication Reconciliation, Communication With Other Providers and Other Discharge Plan Discharge Items Patient Disposition: Home - Home Health Services Reason For Visit: WEAKNESS ORTHOSTASIS Discharge Diagnosis: Ambulatory Dysfunction, Right Wrist Fracture, Orthostatic Hypotension Condition: Fair Discharge Goals: Decrease discomfort, Improve disease control, Improve function, Increase independence, Improve nutritional status and Prevent disease Activity: As commented below Exercise/Sports: Gradually increase as tolerated Non-emergency contact: Primary Care Provider Call non-emergency contact if: you have any medication questions, your symptoms worsen, your pain is not controlled, your pain is worsening, your pain is unusual for you, your pain is concerning for you and you have a fever Follow-up/Referrals: Zay Brown MD [Physician] - 01/16/19 1:10 pm (Please, follow up at [facility] Urology Office on TuesdayJanuary 16 at 1:10 pm. *This office is located at [address] [place] [address] in [place]. If you need to change this appointment, call the office at [phone].) Gabo Flanagan [Primary Care Provider] - 01/11/19 11:00 am (Please, follow up at Dr. Flanagan' office in [place] with his associate, Jazmyne TABARES, on January 11 at 11:00 am. *If you need to change this appointment, call the office at [phone].) Diet: Regular Addtl Provider Instructions: Please keep cast clean and dry. Please have patient call [facility] to schedule a follow-up appointment. The number is . Please have the patient see Dr. Ackerman's physician recruitment and outreach assistant, Gosia White, 10 to 14 days from the date of the surgery. 1. Right Wrist Fracture * Please schedule a follow up with orthopedics in 10-14 days post op as noted above. * Please continue Tylenol 650 mg every 4-6 hours as needed for pain relief. * Please avoid narcotics, including Hydrocodone, at home due to confusion/altered mental status. 2. Ambulatory Dysfunction/Orthostatic Hypotension * Please continue all medications as prescribed on the medication form at discharge. * Drink plenty of fluids at home to avoid dehydration/increased dizziness. * Please follow up with your primary care provider in 1-2 weeks to discuss this hospital admission. * Midodrine dose has been decreased to 5 mg three times daily. Prescription for Midodrine 5 mg was sent to your pharmacy ([facility]) 3. Prostate Cancer * Please continue home medications as prescribed. * An appointment is scheduled with Dr. Brown to discuss transitioning to hospice care - please follow up on 01/16/19. 4. Dementia * Please continue home medications as prescribed. * Trazodone dose has been decreased to 50 mg at bedtime (was previously 100 mg at bedtime). Prescription for Trazodone 50 mg is available at your pharmacy. * Ativan should be administered on an as needed basis for anxiety/agitation/panic attacks. 5. Thyroid Issues * Please follow up with your primary care provider in 1-2 weeks to discuss thyroid lab work. * Thyroid level was elevated during this admission -- repeat lab work is recommended in 3-4 weeks. Prescriptions: New acetaminophen [Mapap (acetaminophen)] 325 mg Tablet 650 mg PO Q4H PRN (Reason: pain (scale score 1-3)) Qty: 1 RF: 0 midodrine 5 mg tablet 5 mg PO TID 30 Days Qty: 90 RF: 0 trazodone 50 mg tablet 50 mg PO HS Qty: 30 RF: 0 Continued bicalutamide 50 mg tablet 50 mg PO QPM RF: 0 atorvastatin 20 mg tablet 20 mg PO HS RF: 0 donepezil 10 mg tablet 10 mg PO HS RF: 0 carbidopa-levodopa 25-100 mg Tablet 0.5 tab PO TID RF: 0 memantine 10 mg Tablet 10 mg PO BID RF: 0 cholecalciferol (vitamin D3) [Vitamin D3] 2,000 unit Tablet 2,000 unit PO QAM RF: 0 polyethylene glycol 3350 [Miralax] 17 gram/dose Powder 17 g PO DAILY RF: 0 Changed lorazepam 0.5 mg tablet 0.5 mg PO BID PRN (Reason: Panic Attacks and Anxiety) Qty: 1 RF: 0 quetiapine 50 mg tablet 50 mg PO BID Qty: 0 RF: 0 Discontinued trazodone 50 mg Tablet 100 mg PO HS RF: 0 hydrocodone-acetaminophen 5-325 mg tablet 1 - 2 tab PO Q4H PRN (Reason: Pain) RF: 0 diphenhydramine-acetaminophen [Tylenol PM Extra Strength] 25-500 mg Tablet 2 tab PO HS PRN (Reason: Pain) RF: 0 midodrine 10 mg Tablet 15 mg PO TID RF: 0 Stand-Alone Forms: [facility]/Other Patient Handouts: Dementia Patients Caregiver, Dementia Coping Tips Caregiver Discharge Orders: Discharge Order (Routine); Ordered 01/08/19 Ordered By: Ashley Khan Admission Data Admit Date/Time: 01/04/19 14:46 Attending Provider: Alvin Muro Admit Provider: Estephanie Taylor Primary Care Provider: Gabo Flanagan Other Providers: Aashish Ackerman Service: Surgical Services Other Interventions: Discharge Summary Assessment (RN) Last Done: 01/08/19 17:37 Pending Studies at Discharge: No DC Date/Time DO NOT enter until pt leaves facility: 01/08/19 18:30 Supervising Physician Co-Signing Physician Notes Attending Attestation - Pt seen/examined, chart reviewed, discharge care plan d/w HERLINDA Khan. I agree w/ the tavarez components of her discharge documentation. 78yo male with stage 4 prostate ca and Parkinson's disease with dementia who presented after a fall that resulted in right wrist fracture. He underwent ORIF of the fracture by orthopedics. Seen by PT and OT; patient walked considerable distance; rehab not recommended. On day of discharge the patient's voiced caregiver exhaustion and various concerns including outlook for the future. Our team offered to keep the patient hospitalized with the goal of having social work investigate alternative living arrangements. The patient's ultimately refused; instead she consistently stated she would take him home. We discussed hiring private nursing to help in his care at home. We also discussed assisted living in a dementia unit. reported she would investigate/think about these options but ultimately took the patient home. He will need follow-up with orthopedics after discharge. Discharge exam - gen -impulsive, NAD, pleasantly confused mouth - MMM heart - RRR, s1, s2 lungs - CTA b/l abd - soft NT ND BS+ ext - right wrist in splint; cap refill right hand fingers <2sec ankles w/o edema neuro - strength 5/5 x 4 exts Alvin Muro MD
[2019-01-08] MEDS: BICALUTAMIDE 50 MG TAB PO SCH (18:01)
== END 2019-01-08 18:30 | disposition home health service (06) | DRG 982 ==
LOC: ED 08:53 → 2N 08:53 → SUATTDRO 13:35 → 2N 14:54 → SUATTDRO 01-04 14:46 → 3N 01-04 16:30
DX: W19.XXXA Unspecified fall, initial encounter; Z66 Do not resuscitate; Z87.891 Personal history of nicotine dependence; R26.9 Unspecified abnormalities of gait and mobility; R00.0 Tachycardia, unspecified; R94.6 Abnormal results of thyroid function studies; C79.51 Secondary malignant neoplasm of bone; Z85.46 Personal history of malignant neoplasm of prostate; G90.3 Multi-system degeneration of the autonomic nervous system; S52.571A Other intraarticular fracture of lower end of right radius, initial encounter for closed fracture; Z79.899 Other long term (current) drug therapy; G31.83 Neurocognitive disorder with Lewy bodies; I95.2 Hypotension due to drugs; T42.6X5A Adverse effect of other antiepileptic and sedative-hypnotic drugs, initial encounter; R29.6 Repeated falls; N17.9 Acute kidney failure, unspecified; E78.5 Hyperlipidemia, unspecified; F02.81 Dementia in other diseases classified elsewhere, unspecified severity, with behavioral disturbance